=== PATIENT | male | born 1950 | race African-American/Black ===

== ENCOUNTER 2018-01-25 15:57 | Emergency (ER) | payer MEDICARE, BC ==
[~2018-01-25] VITALS: Ht 185.4 cm; Wt 124.0 kg
[~2018-01-25 15:57] MED LIST: ASPI-611 PO; ATOR20TA PO; BENZ-49 PO; CARV-49 PO; CLOP75TA15 PO; LEVO125T8 PO; LEVO500T89 PO; METO-292 PO
[2018-01-25] MEDS ORDERED: morphine 4 MG/ML inj SYRINge IV ONE ×2 (16:20→17:25)
[2018-01-25] MEDS ORDERED: ondansetron/PF 4mg/2ml inj IV ONE (16:20)
[2018-01-25] MEDS ORDERED: propofol 1000mg/100ml bottle 100 ML IV PRN (16:32)
[2018-01-25] MEDS ORDERED: normal saline 1000ML IV soln IVB ONE (16:35)
[2018-01-25] MEDS ORDERED: HYDR-3965 PO (17:40)
[2018-01-25 18:10] VITALS: BP 140/114
== END 2018-01-25 18:25 | disposition home or self-care (01) ==
LOC: ER 15:58
DX: S82.61XA Displaced fracture of lateral malleolus of right fibula, initial encounter for closed fracture (principal); E11.9 Type 2 diabetes mellitus without complications; Z88.5 Allergy status to narcotic agent; Z79.82 Long term (current) use of aspirin; Z79.899 Other long term (current) drug therapy; W18.49XA Other slipping, tripping and stumbling without falling, initial encounter; Y93.89 Activity, other specified; Y92.89 Other specified places as the place of occurrence of the external cause; Y99.8 Other external cause status
CPT/HCPCS: 27788; 73600; 73610; 96374; 96375; 96376; 99152; 99285; J2270; J2405; J2704

== ENCOUNTER 2018-02-11 13:58 | Inpatient (IN) | payer BC ==
[2018-02-06 11:39] LABS: BASOPHILS % (AUTO) 0.3 % (0-1); EOSINOPHILS # (AUTO) 0.3 X10'3 (0-0.9); EOSINOPHILS % (AUTO) 2.6 % (0-6); LYMPHOCYTES # (AUTO) 0.8 X10'3 (1.1-4.8); LYMPHOCYTES % (AUTO) 7.9 % (21-51); MEAN CORPUSCULAR HEMOGLOBIN 30.9 PG (27.0-31.0); MEAN CORPUSCULAR HGB CONC 33.5 % (33.0-36.5); MEAN PLATELET VOLUME 7.4 FL (7.4-10.4); MONOCYTES # (AUTO) 0.3 X10'3 (0-0.9); MONOCYTES % (AUTO) 3.3 % (2-12); NEUTROPHILS # (AUTO) 8.5 X10'3 (1.8-7.7); NEUTROPHILS % (AUTO) 85.9 % (42-75); PRE OP HEMATOCRIT 32.3 % (42.0-52.0); PRE OP PLATELET COUNT 262 X10'3 (140-440); RED BLOOD COUNT 3.51 X10'6 (4.70-6.10); RED CELL DISTRIBUTION WIDTH 14.6 % (11.5-14.5)
[2018-02-06 11:42] LABS: PRE OP HEMOGLOBIN 10.8 g/dL (14.0-17.9)
[2018-02-06 12:01] LABS: ALBUMIN 3.1 G/DL (3.4-5.0); ALBUMIN/GLOBULIN RATIO 0.6 (1.1-1.5); ALKALINE PHOSPHATASE 116 IU/L (46-116); BLOOD UREA NITROGEN 58 MG/DL (7-18); BUN/CREATININE RATIO 20.8 (5.4-32.0); CALCIUM 9.6 MG/DL (8.5-10.1); CHLORIDE 103 MMOL/L (99-107); CREATININE 2.79 MG/DL (0.60-1.10); PRE OP ALT 32 U/L (30-65); PRE OP ANION GAP 10 (8-16); PRE OP AST 26 U/L (10-37); PRE OP BILIRUB, TOTAL 0.3 MG/DL (0.0-1.0); PRE OP GLUCOSE 169 MG/DL (70-104); PRE OP POTASSIUM 4.6 MMOL/L (3.4-5.1); PRE OP SODIUM 138 MMOL/L (135-145); TOTAL PROTEIN 7.9 G/DL (6.4-8.2); eGFR 23 ML/MIN
[2018-02-06 12:05] LABS: PRE OP PROTIME 10.2 SECONDS (9.0-12.0)
[~2018-02-11] VITALS: Ht 185.4 cm; Wt 120.5 kg
[2018-02-11] VITALS (22 sets, daily range): BP systolic 104–177; BP diastolic 52–80
[~2018-02-11 13:58] MED LIST changes: -BENZ-49 PO; -CARV-49 PO; -CLOP75TA15 PO; +ERGO500041 PO; +LEVO100T PO; -LEVO125T8 PO; -LEVO500T89 PO; -METO-292 PO; +PIOG30TA10 PO; +TIMO5DRO33 RIGHTEYE; +ceFAZolin inj. 3,000 MG in normal saline 100ml IV soln 100 ML IV ONE; +famotidine 20mg tablet PO ONE; +meperidine/PF 25mg/ml syringe IV PRN; +morphine 4 MG/ML inj SYRINge IV PRN; +ondansetron/PF 4mg/2ml inj IV PRN; +proCHLORperazine 10 MG/2 ml inj IV PRN; +ringers solution, lacted 1,000 ML IV SCH; +vancomycin inj 1,500 MG in normal saline 300ml IV soln IV ONE
[2018-02-11] MEDS ORDERED: fentaNYL/PF 50MCG/1 ML 2ML syringe ONE ×2 (16:02→16:40)
[2018-02-11] MEDS ORDERED: midazolam 2 mg/2 ml injection ONE ×2 (16:03)
[2018-02-11] MEDS ORDERED: sevoflurane 250ml liquid IH ONE (16:04)
[2018-02-11] MEDS ORDERED: ondansetron/PF 4mg/2ml inj ONE (16:04)
[2018-02-11] MEDS ORDERED: cloNIDine hcl/PF 100mcg/ml inj ONE (16:04)
[2018-02-11] MEDS ORDERED: morphine 10mg/ml inj. ONE (17:30)
[2018-02-11] MEDS ORDERED: dexamethasone sod phosphate 4mg/ml inj. ONE (17:31)
[2018-02-11] MEDS ORDERED: propofol inj 20 ML IV ONE (17:31)
[2018-02-11] MEDS ORDERED: ROPIVAcaine 0.5% (5mg/ml) 30ml vial ONE (17:31)
[2018-02-11] MEDS ORDERED: ePHEDrine 50MG/ML INJ. ONE (17:31)
[2018-02-11] MEDS ORDERED: ondansetron/PF 4mg/2ml inj IV PRN (18:45)
[2018-02-11] MEDS ORDERED: HYDROmorphone inj. 0.5 MG/0.5 ML DISP.SYRIN IV PRN ×2 (18:45)
[2018-02-11] MEDS ORDERED: ringers solution, lacted 1,000 ML IV SCH (18:45)
[2018-02-11] MEDS ORDERED: morphine 4 MG/ML inj SYRINge IV PRN (18:45)
[2018-02-11] MEDS: timolol 0.5% ophthalmic solution 5ml bottle RIGHTEYE SCH (22:54)
[2018-02-11] MEDS: normal saline 1000ml 1,000 ML IV SCH (22:55)
[2018-02-12] VITALS (7 sets, daily range): BP systolic 120–149; BP diastolic 42–61
[2018-02-12] MEDS: ceFAZolin 1GM/D5W- ADD-VANTAGE 50 ML IV SCH ×3 (00:26→15:36)
[2018-02-12] MEDS: HYDROcodone/acetaminophen 10/325mg tab PO PRN ×5 (04:11→19:22)
[2018-02-12] MEDS: normal saline 1000ml 1,000 ML IV SCH ×3 (06:30→22:22)
[2018-02-12] MEDS: levoTHYROXINE 100mcg tablet PO SCH (07:33)
[2018-02-12] MEDS: aspirin 81mg tablet.DR PO SCH (07:34)
[2018-02-12] MEDS: atorvastatin 20mg tablet PO SCH (07:34)
[2018-02-12] MEDS: pioglitazone 15mg tablet PO SCH (07:34)
[2018-02-12] MEDS: timolol 0.5% ophthalmic solution 5ml bottle RIGHTEYE SCH ×2 (08:00→19:21)
[2018-02-13] MEDS: HYDROcodone/acetaminophen 10/325mg tab PO PRN ×4 (01:38→19:35)
[2018-02-13 02:00] VITALS: BP 138/59
[2018-02-13 05:00] VITALS: BP 112/57
[2018-02-13] MEDS: aspirin 81mg tablet.DR PO SCH (07:45)
[2018-02-13] MEDS: pioglitazone 15mg tablet PO SCH (07:45)
[2018-02-13] MEDS: atorvastatin 20mg tablet PO SCH (07:46)
[2018-02-13] MEDS: levoTHYROXINE 100mcg tablet PO SCH (07:46)
[2018-02-13] MEDS: timolol 0.5% ophthalmic solution 5ml bottle RIGHTEYE SCH ×2 (07:46→19:33)
[2018-02-13] MEDS: normal saline 1000ml 1,000 ML IV SCH (08:23)
[2018-02-13 10:00] VITALS: BP 102/48
[2018-02-13 18:00] VITALS: BP 118/45
[2018-02-13 22:00] VITALS: BP 128/51
[2018-02-14 06:00] VITALS: BP 148/63
[2018-02-14] MEDS: timolol 0.5% ophthalmic solution 5ml bottle RIGHTEYE SCH (07:19)
[2018-02-14] MEDS: levoTHYROXINE 100mcg tablet PO SCH (07:19)
[2018-02-14] MEDS: aspirin 81mg tablet.DR PO SCH (07:20)
[2018-02-14] MEDS: atorvastatin 20mg tablet PO SCH (07:20)
[2018-02-14] MEDS: pioglitazone 15mg tablet PO SCH (07:20)
[2018-02-14] MEDS: HYDROcodone/acetaminophen 10/325mg tab PO PRN ×2 (07:21→17:34)
[2018-02-14 10:00] VITALS: BP 159/61
[2018-02-14] MEDS ORDERED: WALKERFR (16:50)
== END 2018-02-14 17:45 | disposition home health service (06) | DRG 494 ==
LOC: PAS 13:58 → ORTHO 4S 20:20 → OBSVTOIN 02-12 08:00
PROVIDERS: ADMIT Orthopaedic Surgery; ATTEND Orthopaedic Surgery
PROC: 3E0T3BZ Introduction of Anesthetic Agent into Peripheral Nerves and Plexi, Percutaneous Approach (ICD-10-PCS; 2018-02-11)
PROC: 0QSJ04Z Reposition Right Fibula with Internal Fixation Device, Open Approach (ICD-10-PCS; principal; 2018-02-11 16:04)
PROC: 5A09357 Assistance with Respiratory Ventilation, Less than 24 Consecutive Hours, Continuous Positive Airway Pressure (ICD-10-PCS; 2018-02-12)
PROC: 5A09357 Assistance with Respiratory Ventilation, Less than 24 Consecutive Hours, Continuous Positive Airway Pressure (ICD-10-PCS; 2018-02-13)
DX: S82.61XA Displaced fracture of lateral malleolus of right fibula, initial encounter for closed fracture (principal); N18.9 Chronic kidney disease, unspecified; E11.22 Type 2 diabetes mellitus with diabetic chronic kidney disease; E03.9 Hypothyroidism, unspecified; M19.90 Unspecified osteoarthritis, unspecified site; G47.30 Sleep apnea, unspecified; E66.9 Obesity, unspecified; E78.5 Hyperlipidemia, unspecified; X58.XXXA Exposure to other specified factors, initial encounter; I12.9 Hypertensive chronic kidney disease with stage 1 through stage 4 chronic kidney disease, or unspecified chronic kidney disease; I25.10 Atherosclerotic heart disease of native coronary artery without angina pectoris; Z88.6 Allergy status to analgesic agent; I25.2 Old myocardial infarction; Z95.5 Presence of coronary angioplasty implant and graft; Z79.890 Hormone replacement therapy; Z79.899 Other long term (current) drug therapy; Z79.82 Long term (current) use of aspirin; Z92.3 Personal history of irradiation; Z92.21 Personal history of antineoplastic chemotherapy; Z85.818 Personal history of malignant neoplasm of other sites of lip, oral cavity, and pharynx; Z68.35 Body mass index [BMI] 35.0-35.9, adult; Y93.89 Activity, other specified; Y92.89 Other specified places as the place of occurrence of the external cause; Y99.8 Other external cause status
CPT/HCPCS: 36415; 71045; 80053; 82948; 84443; 85025; 85610; 85730; 93005; 97110; 97116; 97162; 97530; 97542; A6222; A6449; A7000; G0378; J0690; J0735; J1100; J2250; J2270; J2405; J2704; J2795; J3010; J3370; J7030; J7120

== ENCOUNTER 2018-05-03 11:35 | Emergency (ER) | payer MEDICARE ==
[~2018-05-03] VITALS: Ht 185.4 cm; Wt 120.4 kg
[~2018-05-03 11:35] MED LIST changes: +WALKERFR; -ceFAZolin inj. 3,000 MG in normal saline 100ml IV soln 100 ML IV ONE; -famotidine 20mg tablet PO ONE; -meperidine/PF 25mg/ml syringe IV PRN; -morphine 4 MG/ML inj SYRINge IV PRN; -ondansetron/PF 4mg/2ml inj IV PRN; -proCHLORperazine 10 MG/2 ml inj IV PRN; -ringers solution, lacted 1,000 ML IV SCH; -vancomycin inj 1,500 MG in normal saline 300ml IV soln IV ONE
[2018-05-03 12:00] VITALS: BP 154/65
[2018-05-03] MEDS ORDERED: HYDROcodone/acetaminophen 5mg/325mg tablet PO ONE (13:25)
[2018-05-03] MEDS ORDERED: HYDR-4384 PO (13:25)
[2018-05-03] MEDS ORDERED: WHEE1EAC12 MC (14:08)
--- NOTE | 2018-05-03 15:18 | NUR ---
Case Management provided Pt WC, Pt discharged.
== END 2018-05-03 15:20 | disposition home or self-care (01) ==
LOC: ER 11:36
DX: S82.831A Other fracture of upper and lower end of right fibula, initial encounter for closed fracture (principal); E11.9 Type 2 diabetes mellitus without complications; Z98.890 Other specified postprocedural states; Z88.5 Allergy status to narcotic agent; Z79.82 Long term (current) use of aspirin; Z79.899 Other long term (current) drug therapy; X58.XXXA Exposure to other specified factors, initial encounter; Y93.89 Activity, other specified; Y92.89 Other specified places as the place of occurrence of the external cause; Y99.8 Other external cause status
CPT/HCPCS: 29515; 73610; 99284

== ENCOUNTER 2018-05-13 11:20 | Observation (INO) | payer MEDICARE ==
[2018-05-11 11:59] LABS: BASOPHILS % (AUTO) 0.2 % (0-1); EOSINOPHILS # (AUTO) 0.2 X10'3 (0-0.9); EOSINOPHILS % (AUTO) 3.4 % (0-6); LYMPHOCYTES # (AUTO) 0.8 X10'3 (1.1-4.8); LYMPHOCYTES % (AUTO) 12.3 % (21-51); MEAN CORPUSCULAR HEMOGLOBIN 30.6 PG (27.0-31.0); MEAN CORPUSCULAR HGB CONC 33.8 g/dL (33.0-36.5); MEAN CORPUSCULAR VOLUME 90.5 FL (78-98); MEAN PLATELET VOLUME 8.5 FL (7.4-10.4); MONOCYTES # (AUTO) 0.3 X10'3 (0-0.9); MONOCYTES % (AUTO) 5.5 % (2-12); NEUTROPHILS % (AUTO) 78.6 % (42-75); PRE OP HEMOGLOBIN 11.5 g/dL (14.0-17.9); PRE OP PLATELET COUNT 182 X10'3 (140-440); RED BLOOD COUNT 3.75 X10'6 (4.70-6.10); RED CELL DISTRIBUTION WIDTH 15.4 % (11.5-14.5)
[2018-05-11 12:18] LABS: PRE OP PROTIME 10.3 SECONDS (9.0-12.0)
[2018-05-11 12:19] LABS: HEMOGLOBIN A1C 6.4 % (4.5-6.2)
[2018-05-11 12:27] LABS: ALBUMIN 3.3 G/DL (3.4-5.0); ALBUMIN/GLOBULIN RATIO 0.7 (1.1-1.5); ALKALINE PHOSPHATASE 131 IU/L (46-116); BLOOD UREA NITROGEN 38 MG/DL (7-18); BUN/CREATININE RATIO 15.1 (5.4-32.0); CALCIUM 9.6 MG/DL (8.5-10.1); CHLORIDE 105 MMOL/L (99-107); CREATININE 2.52 MG/DL (0.60-1.10); PRE OP ALT 21 U/L (30-65); PRE OP ANION GAP 12 (8-16); PRE OP AST 18 U/L (10-37); PRE OP BILIRUB, TOTAL 0.3 MG/DL (0.0-1.0); PRE OP GLUCOSE 138 MG/DL (70-104); PRE OP POTASSIUM 4.8 MMOL/L (3.4-5.1); PRE OP SODIUM 140 MMOL/L (135-145); TOTAL CARBON DIOXIDE 22.7 MMOL/L (24-32); eGFR 26 ML/MIN
[2018-05-13] VITALS (16 sets, daily range): BP systolic 97–229; BP diastolic 47–138
[~2018-05-13] VITALS: Ht 185.4 cm; Wt 120.8 kg
[~2018-05-13 11:20] MED LIST changes: +BUPIVAcaine/PF 2.5mg/ml (0.25%) 10ml vial ONE; +IBUP-1984 PO; -WALKERFR; +acetaminophen 325mg tablet PO ONE; +bacitracin 15gm ointment TP ONE; +ceFAZolin 1000mg inj ONE; +ceFAZolin inj. 3,000 MG in normal saline 100ml IV soln 100 ML IV ONE; +famotidine 20mg tablet PO ONE; +gabapentin 300mg capsule PO ONE; +normal saline 1000ml 1,000 ML IV SCH; +oxyCODONE SR 10mg (sust. release) tab -2 tabs (20mg) PO ONE; +ringers solution, lacted 1,000 ML IV SCH; +vancomycin inj 1,500 MG in normal saline 300ml IV soln IV ONE
[2018-05-13] MEDS ORDERED: ROPIVAcaine 0.5% (5mg/ml) 30ml vial ONE (12:02)
[2018-05-13] MEDS ORDERED: midazolam 2 mg/2 ml injection ONE (12:28)
[2018-05-13] MEDS ORDERED: fentaNYL/PF 50MCG/1 ML 2ML syringe ONE (12:28)
[2018-05-13] MEDS ORDERED: etomidate 2mg/ml inj. ONE (12:29)
--- NOTE | 2018-05-13 12:46 | NUR ---
PT HAS A BRACE WITH HAWK WRAP RLE. NOT REMOVED PER OR INSTRUCTION Addendum: 05/13/18 at 1254 by Debi Velasquez RN Amended: Links added.
[2018-05-13] MEDS ORDERED: sevoflurane 250ml liquid IH ONE (13:21)
[2018-05-13] MEDS ORDERED: hydrALAZINE 20mg/ml inj. IV PRN (14:25)
[2018-05-13] MEDS ORDERED: ringers solution, lacted 1,000 ML IV SCH (14:25)
[2018-05-13] MEDS ORDERED: enalaprilat dihydrate 2.5mg/2ml vial IV PRN (14:25)
[2018-05-13] MEDS ORDERED: morphine 4 MG/ML inj SYRINge IV PRN ×2 (14:25)
[2018-05-13] MEDS ORDERED: ondansetron/PF 4mg/2ml inj IV PRN ×2 (14:25→15:30)
[2018-05-13] MEDS ORDERED: fentaNYL/PF 50MCG/1 ML 2ML syringe IV PRN (14:25)
[2018-05-13] MEDS ORDERED: oxyCODONE IR 5mg (immed. release) tablet PO PRN (15:30)
[2018-05-13] MEDS ORDERED: HYDROmorphone inj. 0.5 MG/0.5 ML DISP.SYRIN IV PRN (15:30)
[2018-05-13] MEDS ORDERED: diphenhydrAMINE 25mg capsule PO PRN ×2 (15:30)
[2018-05-13] MEDS ORDERED: acetaminophen 325mg tablet PO PRN (15:30)
[2018-05-13] MEDS ORDERED: magnesium hydroxide 30ml (MOM) UD suspension PO PRN (15:30)
[2018-05-13] MEDS ORDERED: HYDROmorphone 1 mg/ml syringe IV PRN (15:30)
[2018-05-13] MEDS ORDERED: bisacodyl 10mg suppository rectal RC PRN (15:30)
--- NOTE | 2018-05-13 15:55 | NUR ---
Received from OR via BED , accompanied by Anesthesiologist DR BAKER and report given by Anesthesiolgist. PATIENT WAKING UP, DENIES PAIN, V/S WNL, NEUROVASCULAR CHECKS INTACT, 20G PIV LUE , DRESSING TO RIGHT ANKLE SPLINT CAST CDI W/ COLD POWDER PACK
[2018-05-13] MEDS: ceFAZolin 1GM/D5W- ADD-VANTAGE 50 ML IV SCH (16:00)
[2018-05-13] MEDS ORDERED: IBUP-1984 PO (16:11)
[2018-05-13] MEDS: fentaNYL/PF 50MCG/1 ML 2ML syringe IV PRN ×2 (16:46→16:50)
--- NOTE | 2018-05-13 16:55 | NUR ---
PATIENT A&OX4 , STATES PAIN CONTROLELD, V/S WNL, NEUROVASCULAR CHECKS INTACT, 20G PIV LUE , DRESSING TO RIGHT ANKLE SPLINT CAST CDI W/ COLD POWDER PACK , PATIENT TAKEN TO 4022B WITH ALL BELONGINGS AND HOOKED UP TO MONITORS IN ROOM AND REPORT GIVEN TO MANDI VARGHESE WHO HAS TAKEN OVER PATIENT CARE.
--- NOTE | 2018-05-13 17:00 | NUR ---
ASSUMED CARE, RECEIVED REPORT FROM JEFFERSON VARGHESE, PATIENT ARRIVED ON GURNEY, ASSIST WITH TRANSFER TO BED. PT NAUSEOUS UPON ARRIVAL, RECEIVED ZOFRAN IN THE PACU, WILL CONTINUE TO MONITOR.
--- NOTE | 2018-05-13 18:20 | NUR ---
Problems reprioritized. Patient report given, questions answered & plan of care reviewed with TATO VARGHESE.
--- NOTE | 2018-05-13 18:33 | NUR ---
RECEIVED REPORT FROM JOSSIE VARGHESE AND ASSUMED PATIENT CARE
[2018-05-13] MEDS: potassium cl 20mEq in 1/2 NS 1,000 ML IV SCH (19:20)
[2018-05-13] MEDS: metoclopramide 5 mg/ml inj IV PRN (19:20)
[2018-05-13] MEDS: timolol 0.5% ophthalmic solution 5ml bottle RIGHTEYE SCH (20:00)
[2018-05-13] MEDS ORDERED: vancomycin/NS 1 GM ADD-VANTAGE 250 ML IV SCH (20:00)
[2018-05-13] MEDS ORDERED: sennosides 8.6mg tablet PO SCH (21:00)
[2018-05-13] MEDS: acetaminophen 325mg tablet PO SCH (21:00)
[2018-05-13] MEDS: ibuprofen tablet 400 MG TABLET PO SCH (21:01)
[2018-05-13] MEDS: gabapentin 300mg capsule PO SCH (21:01)
[2018-05-14] MEDS: acetaminophen 325mg tablet PO SCH ×3 (01:23→13:48)
[2018-05-14] MEDS: ceFAZolin 1GM/D5W- ADD-VANTAGE 50 ML IV SCH (01:23)
[2018-05-14 02:00] VITALS: BP 135/59
[2018-05-14] MEDS: potassium cl 20mEq in 1/2 NS 1,000 ML IV SCH ×2 (05:41→05:52)
[2018-05-14] MEDS: oxyCODONE IR 5mg (immed. release) tablet PO PRN ×2 (05:42→13:48)
[2018-05-14 05:50] LABS: BASOPHILS % (AUTO) 0.5 % (0-1); EOSINOPHILS # (AUTO) 0.2 X10'3 (0-0.9); EOSINOPHILS % (AUTO) 2.7 % (0-6); HEMOGLOBIN 10.2 g/dl (14.0-17.9); LYMPHOCYTES # (AUTO) 0.9 X10'3 (1.1-4.8); LYMPHOCYTES % (AUTO) 13.5 % (21-51); MEAN CORPUSCULAR HEMOGLOBIN 30.7 PG (27.0-31.0); MEAN CORPUSCULAR HGB CONC 34.1 g/dL (33.0-36.5); MEAN CORPUSCULAR VOLUME 90.2 FL (78-98); MEAN PLATELET VOLUME 7.7 FL (7.4-10.4); MONOCYTES # (AUTO) 0.4 X10'3 (0-0.9); MONOCYTES % (AUTO) 5.2 % (2-12); NEUTROPHILS # (AUTO) 5.5 X10'3 (1.8-7.7); NEUTROPHILS % (AUTO) 78.1 % (42-75); PLATELET COUNT 161 X10'3 (140-440); RED BLOOD COUNT 3.32 X10'6 (4.70-6.10); RED CELL DISTRIBUTION WIDTH 15.2 % (11.5-14.5)
--- NOTE | 2018-05-14 05:57 | NUR ---
REPORT GIVEN TO JOSSIE VARGHESE
[2018-05-14 06:00] VITALS: BP 121/54
[2018-05-14 06:04] LABS: ANION GAP 10 (8-16); CHLORIDE 107 MMOL/L (99-107); POTASSIUM 4.7 MMOL/L (3.5-5.1); SODIUM 139 MMOL/L (135-145); TOTAL CARBON DIOXIDE 21.7 MMOL/L (24-32)
[2018-05-14] MEDS ORDERED: albuterol 2.5 MG/3 ML nebule NEB PRN (06:25)
[2018-05-14] MEDS: metoclopramide 5 mg/ml inj IV PRN (07:16)
[2018-05-14] MEDS: ibuprofen tablet 400 MG TABLET PO SCH (08:00)
[2018-05-14] MEDS ORDERED: levoTHYROXINE 100mcg tablet PO SCH (08:00)
[2018-05-14] MEDS: gabapentin 300mg capsule PO SCH ×2 (08:00→13:51)
[2018-05-14] MEDS ORDERED: atorvastatin 20mg tablet PO SCH (08:00)
[2018-05-14] MEDS ORDERED: pioglitazone 15mg tablet PO SCH (08:00)
[2018-05-14] MEDS ORDERED: aspirin 81mg tab.chew PO SCH (08:00)
[2018-05-14] MEDS: timolol 0.5% ophthalmic solution 5ml bottle RIGHTEYE SCH (08:52)
[2018-05-14 10:00] VITALS: BP 138/88
--- NOTE | 2018-05-14 12:23 | NUR ---
Joint replacement consult: Pt seen by SARI for written/verbal high protein ed. RD reviewed high protein needs for wound healing, immune strength, high protein foods, and protein supplementation options. RD contact information provided in case of further questions. Pt agrees to Megan STEPHENS; notified will continue to monitor. Addendum: 05/14/18 at [address] Amended: Links added.
[2018-05-14] MEDS ORDERED: NUT.TX.GLUC.INTOLER,LAC-FR,SOY (GLUCERNA) 237 ML PO SCH (13:00)
[2018-05-14 14:00] VITALS: BP 151/63
--- NOTE | 2018-05-14 16:42 | NUR ---
PATIENT DC HOME SAFELY WITH GIRLFRIEND. ALL BELONGINGS IN POSSESSION. PATIENT ACKNOWLEDGES UNDERSTANDING OF DC INSTRUCTIONS.
[2018-05-15] MEDS ORDERED: acetaminophen 325mg tablet PO PRN (15:30)
== END 2018-05-14 16:30 | disposition home or self-care (01) ==
LOC: PAS 11:20 → ORTHO 4S 15:36
PROVIDERS: ADMIT Orthopaedic Surgery; ATTEND Orthopaedic Surgery
DX: M25.571 Pain in right ankle and joints of right foot (principal); S93.421D Sprain of deltoid ligament of right ankle, subsequent encounter; T84.84XS Pain due to internal orthopedic prosthetic devices, implants and grafts, sequela; S82.61XS Displaced fracture of lateral malleolus of right fibula, sequela; I10 Essential (primary) hypertension; I25.10 Atherosclerotic heart disease of native coronary artery without angina pectoris; E11.9 Type 2 diabetes mellitus without complications; G47.30 Sleep apnea, unspecified; E78.5 Hyperlipidemia, unspecified; E03.9 Hypothyroidism, unspecified
CPT/HCPCS: 20680; 27792; 36415; 80051; 80053; 82948; 83036; 84443; 85025; 85610; 85730; 94760; 96365; 96366; 96367; 96375; 96376; 97116; 97162; A6222; A6449; G0378; J0360; J0690; J2250; J2405; J2765; J3010; J3370; J3490; J7030; J7120; A7000; J2795

== ENCOUNTER 2019-04-30 12:56 | Emergency (ER) | payer MEDICARE ==
[~2019-04-30] VITALS: Ht 185.4 cm; Wt 123.0 kg
[~2019-04-30 12:56] MED LIST changes: -BUPIVAcaine/PF 2.5mg/ml (0.25%) 10ml vial ONE; -acetaminophen 325mg tablet PO ONE; -bacitracin 15gm ointment TP ONE; -ceFAZolin 1000mg inj ONE; -ceFAZolin inj. 3,000 MG in normal saline 100ml IV soln 100 ML IV ONE; -famotidine 20mg tablet PO ONE; -gabapentin 300mg capsule PO ONE; -normal saline 1000ml 1,000 ML IV SCH; -oxyCODONE SR 10mg (sust. release) tab -2 tabs (20mg) PO ONE; -ringers solution, lacted 1,000 ML IV SCH; -vancomycin inj 1,500 MG in normal saline 300ml IV soln IV ONE
[2019-04-30 13:01] VITALS: BP 122/71
[2019-04-30] MEDS ORDERED: DOXY100C2 PO (13:49)
[2019-04-30] MEDS ORDERED: ALBU8.5H8 IH (13:49)
== END 2019-04-30 14:07 | disposition home or self-care (01) ==
LOC: ER 12:57
DX: J18.9 Pneumonia, unspecified organism (principal); E11.9 Type 2 diabetes mellitus without complications; Z98.890 Other specified postprocedural states; Z88.5 Allergy status to narcotic agent; Z79.82 Long term (current) use of aspirin; Z79.899 Other long term (current) drug therapy
CPT/HCPCS: 71046; 99283

== ENCOUNTER 2020-09-12 13:01 | Outpatient (CLI) | payer MEDICARE ==
[~2020-09-12 13:01] MED LIST changes: +APIX5TAB3 PO; -ATOR20TA PO; +ATOR20TA66 PO; -ERGO500041 PO; -IBUP-1984 PO; -LEVO100T PO; +LEVO137T2 PO; +LISI20TA28 PO; +METO25TA6 PO; -PIOG30TA10 PO; -TIMO5DRO33 RIGHTEYE
== END 2020-09-12 23:59 | disposition home or self-care (01) ==
LOC: 64 CT 13:01
PROVIDERS: ATTEND Family Medicine
DX: R91.1 Solitary pulmonary nodule (principal); I70.0 Atherosclerosis of aorta; M19.90 Unspecified osteoarthritis, unspecified site; M48.10 Ankylosing hyperostosis [Forestier], site unspecified
CPT/HCPCS: 71250

== ENCOUNTER 2020-10-17 06:32 | Day surgery (SDC) | payer MEDICARE ==
[2020-10-17] VITALS (14 sets, daily range): BP systolic 117–234; BP diastolic 50–113
[~2020-10-17] VITALS: Ht 185.4 cm; Wt 111.4 kg
[2020-10-17 08:02] LABS: BASOPHILS % (AUTO) 0.3 % (0-1); EOSINOPHILS # (AUTO) 0.1 X10'3 (0-0.9); EOSINOPHILS % (AUTO) 1.8 % (0-6); HEMATOCRIT 37.4 % (42.0-52.0); HEMOGLOBIN 12.4 g/dl (14.0-17.9); LYMPHOCYTES # (AUTO) 1.1 X10'3 (1.1-4.8); MEAN CORPUSCULAR HEMOGLOBIN 30.6 PG (27.0-31.0); MEAN CORPUSCULAR VOLUME 92.7 FL (78-98); MEAN PLATELET VOLUME 8.5 FL (7.4-10.4); MONOCYTES # (AUTO) 0.4 X10'3 (0-0.9); NEUTROPHILS # (AUTO) 4.5 X10'3 (1.8-7.7); NEUTROPHILS % (AUTO) 72.9 % (42-75); PLATELET COUNT 171 X10'3 (140-440); RED BLOOD COUNT 4.04 X10'6 (4.70-6.10); RED CELL DISTRIBUTION WIDTH 14.9 % (11.5-14.5); WHITE BLOOD COUNT 6.1 X10'3 (4.5-11.0)
[2020-10-17] MEDS ORDERED: midazolam 1 mg/ML 2ml injection ONE (09:02)
[2020-10-17] MEDS ORDERED: fentaNYL/PF 50MCG/1 ML 2ML syringe ONE (09:02)
[2020-10-17] MEDS ORDERED: hydrALAZINE 20mg/ml inj. IV ONE (09:52)
== END 2020-10-17 13:30 | disposition home or self-care (01) ==
LOC: SSTAY O 06:32
PROVIDERS: ATTEND Radiology Vascular & Interventional Radiology
DX: R91.1 Solitary pulmonary nodule (principal); E03.9 Hypothyroidism, unspecified; E78.5 Hyperlipidemia, unspecified; I48.91 Unspecified atrial fibrillation; Z88.5 Allergy status to narcotic agent; Z79.899 Other long term (current) drug therapy; Z79.82 Long term (current) use of aspirin; Z79.01 Long term (current) use of anticoagulants; Z85.818 Personal history of malignant neoplasm of other sites of lip, oral cavity, and pharynx; R06.02 Shortness of breath
CPT/HCPCS: 32408; 36415; 71045; 82948; 83880; 85025; 99152; 99153; J0360; J2250; J3010; 77012; 88173; 88305; 88341; 88342; 88360

== ENCOUNTER 2020-11-29 12:29 | Outpatient (CLI) | payer MEDICARE ==
[2020-11-29] MEDS ORDERED: BARIUM SULFATE 340 ML SUSP.RECON***PROCEDURE AREA ONLY**DONT ENTER PO ONE (13:00)
== END 2020-11-29 23:59 | disposition home or self-care (01) ==
LOC: RAD 12:29
PROVIDERS: ATTEND Family Medicine
DX: R13.12 Dysphagia, oropharyngeal phase (principal); Z85.89 Personal history of malignant neoplasm of other organs and systems
CPT/HCPCS: 74230

== ENCOUNTER 2021-01-25 08:00 | Inpatient (IN) | payer MEDICARE ==
[2021-01-19 12:47] LABS: BASOPHILS % (AUTO) 0.2 % (0-1); EOSINOPHILS # (AUTO) 0.1 X10'3 (0-0.9); EOSINOPHILS % (AUTO) 1.4 % (0-6); LYMPHOCYTES # (AUTO) 0.9 X10'3 (1.1-4.8); LYMPHOCYTES % (AUTO) 18.5 % (21-51); MEAN CORPUSCULAR HEMOGLOBIN 30.9 PG (27.0-31.0); MEAN CORPUSCULAR HGB CONC 33.2 g/dL (33.0-36.5); MEAN CORPUSCULAR VOLUME 93.3 FL (78-98); MEAN PLATELET VOLUME 8.2 FL (7.4-10.4); MONOCYTES # (AUTO) 0.3 X10'3 (0-0.9); MONOCYTES % (AUTO) 6.7 % (2-12); NEUTROPHILS # (AUTO) 3.7 X10'3 (1.8-7.7); NEUTROPHILS % (AUTO) 73.2 % (42-75); PRE OP HEMATOCRIT 35.7 % (42.0-52.0); PRE OP HEMOGLOBIN 11.8 g/dL (14.0-17.9); PRE OP PLATELET COUNT 183 X10'3 (140-440); RED BLOOD COUNT 3.83 X10'6 (4.70-6.10); RED CELL DISTRIBUTION WIDTH 15.4 % (11.5-14.5)
[2021-01-19 12:53] LABS: PRE OP INR 1.1 INR; PRE OP PROTIME 10.9 SECONDS (9.0-12.0)
[2021-01-19 13:13] LABS: ALBUMIN 3.9 G/DL (3.4-5.0); ALKALINE PHOSPHATASE 142 IU/L (46-116); BLOOD UREA NITROGEN 38 MG/DL (7-18); CALCIUM 8.9 MG/DL (8.5-10.1); CHLORIDE 109 MMOL/L (99-107); CREATININE 3.17 MG/DL (0.60-1.10); PRE OP ALT 20 U/L (30-65); PRE OP ANION GAP 8 (8-16); PRE OP AST 16 U/L (10-37); PRE OP BILIRUB, TOTAL 0.4 MG/DL (0.0-1.0); PRE OP GLUCOSE 134 MG/DL (70-104); PRE OP POTASSIUM 4.5 MMOL/L (3.4-5.1); PRE OP SODIUM 140 MMOL/L (135-145); TOTAL CARBON DIOXIDE 22.6 MMOL/L (24-32); eGFR 20 ML/MIN
[2021-01-25] VITALS (8 sets, daily range): BP systolic 124–196; BP diastolic 55–84
[~2021-01-25] VITALS: Ht 185.4 cm; Wt 117.0 kg
[~2021-01-25 08:00] MED LIST changes: +DOCUMENT DATE & TIME OF BETA-BLOCKER PO ONE; -LISI20TA28 PO; +LISI40TA13 PO; +ceFAZolin 2gm in dextrose, iso 50 ML IV ONE; +famotidine 20mg tablet PO ONE; +ringers solution, lacted 1,000 ML IV SCH
[2021-01-25] MEDS ORDERED: metoprolol tartrate 25mg tablet PO ONE (09:30)
[2021-01-25] MEDS ORDERED: midazolam 1 mg/ML 2ml injection ONE (15:05)
[2021-01-25 15:51] LABS: CLARITY,URINE CLEAR (Clear); COLOR,URINE YELLOW (Yellow); GLUCOSE, URINE NEGATIVE (Neg); KETONES,URINE NEGATIVE (Neg); LEUKOCYTE ESTERASE ,URINE NEGATIVE (Neg); NITRITES, URINE NEGATIVE (Neg); OCCULT BLOOD,URINE NEGATIVE (Neg); PROTEIN,URINE 300 mg/dl (Neg); UA COLLECTION TYPE VOIDED; UROBILINOGEN,URINE 0.2 E.U/dL (0.2-1.0)
[2021-01-25 16:20] LABS: RBC,URINE NONE SEEN /HPF (0-2); WBC,URINE NONE SEEN /HPF (0-4)
[2021-01-25 16:21] LABS: BACTERIA,URINE NONE SEEN /HPF (Neg); SQUAMOUS EPITHELIAL CELL,UR FEW /LPF (FEW)
[2021-01-25] MEDS ORDERED: fentaNYL /PF 50mcg/ml 5ml ampule ONE (16:33)
[2021-01-25] MEDS ORDERED: rocuronium 10mg/ml inj IV ONE (16:33)
[2021-01-25] MEDS ORDERED: propofol inj 20 ML IV ONE (16:33)
[2021-01-25] MEDS ORDERED: morphine 2 MG/ML inj. syringe IV PRN (17:05)
[2021-01-25] MEDS ORDERED: acetaminophen 1,000mg/100ml IV 100 ML IV PRN (17:05)
[2021-01-25] MEDS ORDERED: ondansetron/PF 4mg/2ml inj IV PRN ×2 (17:05→19:00)
[2021-01-25] MEDS ORDERED: proCHLORperazine 10 MG/2 ml inj IV PRN (17:05)
[2021-01-25] MEDS ORDERED: labetalol 20mg/4ml (5mg/ml) syringe IV PRN (17:05)
[2021-01-25] MEDS ORDERED: hydrALAZINE 20mg/ml inj. IV PRN (17:05)
[2021-01-25] MEDS ORDERED: meperidine/PF 25mg/ml syringe IV PRN ×3 (17:05)
[2021-01-25] MEDS ORDERED: normal saline 1000ml 1,000 ML IV ONE (17:05)
[2021-01-25] MEDS ORDERED: INDOCYANINE GREEN 25 MG/10 ML VIAL IV ONE (17:32)
[2021-01-25] MEDS ORDERED: BUPIVACAINE liposomal/PF 13.3 MG/ML vial IM ONE (18:07)
[2021-01-25] MEDS ORDERED: BUPIVAcaine/PF 2.5 mg/ml (0.25%) 30ml vial ONE (18:07)
[2021-01-25] MEDS ORDERED: dexamethasone sod phosphate 4mg/ml inj. ONE (18:45)
[2021-01-25] MEDS ORDERED: ondansetron/PF 4mg/2ml inj ONE (18:46)
[2021-01-25] MEDS ORDERED: sugammadex 200mg/2ml injection IV ONE ×2 (18:47→19:04)
[2021-01-25] MEDS ORDERED: naloxone 0.4 mg/ml inj IV PRN (19:00)
[2021-01-25] MEDS ORDERED: potassium cl 20mEq in 1/2 NS 1,000 ML IV SCH (19:00)
[2021-01-25] MEDS ORDERED: metoclopramide 5 mg/ml inj IV PRN (19:00)
[2021-01-25] MEDS ORDERED: albuterol 2.5 MG/3 ML nebule NEB PRN (19:00)
[2021-01-25] MEDS ORDERED: CADD PCA waste documentation MC PRN (19:00)
[2021-01-25] MEDS ORDERED: morphine 4 MG/ML inj SYRINge IV PRN (19:00)
--- NOTE | 2021-01-25 19:08 | NUR ---
Received from OR via , accompanied by Anesthesiologist DR JASMINE and report given by Anesthesiolgist. AWAKENS TO VOICE. VITALS STABLE. DRESSING DI. STATES PAIN TO CT AREA. WILL MEDICATE. SANDERSON WITH CLEAR URINE. RT LAT CHEST TUBE TO LOW SUCTION.
[2021-01-25] MEDS: morphine 4 MG/ML inj SYRINge IV PRN ×3 (19:17→22:07)
[2021-01-25 19:20] LABS: ABG BASE EXCESS -8.8 mmol/L (-2.0-2.0); ABG HCO3 17.6 mmol/L (22.0-26.0); ABG OXYGEN SATURATION 96.9 % (94-97); ABG PCO2 (T) 39.8 mmHg (35.0-48.0); ABG PO2 (T) 97.9 mmHg (75.0-100.0); FCOHb 0.3 % (0.0-3.9); FLOW 10 L/min; FMetHb 0.4 % (0.0-1.5); FO2Hb 96.2 % (94-97); TOTAL HEMOGLOBIN 10.8 G/dl (14.0-18.0)
--- NOTE | 2021-01-25 20:18 | NUR ---
Report called to receiving nurse. Transferred via BED Belongings . Special Issues communicated to receiving nurse. AWAKE AND ORIENTED. VITALS STABLE. DRESSING DI. STATES PAIN IMPROVING. TO [facility] RM [id number] AT THIS TIME.
[2021-01-26] VITALS (16 sets, daily range): BP systolic 76–175; BP diastolic 39–70
[2021-01-26] MEDS: gabapentin 300mg capsule PO SCH ×3 (01:22→20:00)
[2021-01-26] MEDS: ceFAZolin inj. 1,000 MG in dextrose 5%-water 50ml 50 ML IV SCH ×2 (01:25→08:24)
[2021-01-26] MEDS: morphine 4 MG/ML inj SYRINge IV PRN ×2 (02:45→08:27)
[2021-01-26 06:33] LABS: BASOPHILS % (AUTO) 0.1 % (0-1); EOSINOPHILS % (AUTO) 0 % (0-6); HEMATOCRIT 32.3 % (42.0-52.0); HEMOGLOBIN 10.9 g/dl (14.0-17.9); LYMPHOCYTES # (AUTO) 0.2 X10'3 (1.1-4.8); LYMPHOCYTES % (AUTO) 1.9 % (21-51); MEAN CORPUSCULAR HEMOGLOBIN 31.2 PG (27.0-31.0); MEAN CORPUSCULAR HGB CONC 33.8 g/dL (33.0-36.5); MEAN CORPUSCULAR VOLUME 92.4 FL (78-98); MEAN PLATELET VOLUME 8.5 FL (7.4-10.4); MONOCYTES # (AUTO) 0.6 X10'3 (0-0.9); MONOCYTES % (AUTO) 5.5 % (2-12); NEUTROPHILS # (AUTO) 9.6 X10'3 (1.8-7.7); NEUTROPHILS % (AUTO) 92.5 % (42-75); PLATELET COUNT 160 X10'3 (140-440); RED BLOOD COUNT 3.49 X10'6 (4.70-6.10); WHITE BLOOD COUNT 10.4 X10'3 (4.5-11.0)
[2021-01-26 06:58] LABS: ALANINE AMINOTRANSFERASE 26 U/L (12-78); ALBUMIN 3.4 G/DL (3.4-5.0); ALBUMIN/GLOBULIN RATIO 0.9 (1.1-1.5); ALKALINE PHOSPHATASE 126 IU/L (46-116); ANION GAP 13 (8-16); ASPARTATE AMINO TRANSFERASE 26 U/L (10-37); BILIRUBIN,TOTAL 0.4 MG/DL (0.1-1.0); BLOOD UREA NITROGEN 43 MG/DL (7-18); BUN/CREATININE RATIO 12.5 (5.4-32.0); CALCIUM 8.2 MG/DL (8.5-10.1); CHLORIDE 109 MMOL/L (99-107); CREATININE 3.44 MG/DL (0.60-1.10); GLUCOSE 229 MG/DL (70-104); MAGNESIUM 1.6 MG/DL (1.5-2.4); PHOSPHORUS 4.3 MG/DL (2.3-4.5); SODIUM 141 MMOL/L (135-145); TOTAL CARBON DIOXIDE 18.9 MMOL/L (24-32); TOTAL PROTEIN 7.2 G/DL (6.4-8.2); eGFR 18 ML/MIN
[2021-01-26 07:16] LABS: POTASSIUM 6.3 MMOL/L (3.5-5.1)
[2021-01-26 07:19] LABS: HEMOGLOBIN A1C 6.3 % (4.5-6.2)
--- NOTE | 2021-01-26 08:13 | NUR ---
Left message with Dr. Mcnally regarding potassium 6.3
--- NOTE | 2021-01-26 08:58 | NUR ---
left voicemessage with Dr. Mcnally ([phone]) regarding oxygen demand increasing to 6L from 2L and Potassium 6.3. Respiratory therapy paged.
[2021-01-26 09:34] LABS: ABG BASE EXCESS -11.1 mmol/L (-2.0-2.0); ABG HCO3 17.2 mmol/L (22.0-26.0); ABG OXYGEN SATURATION 96.4 % (94-97); ABG PO2 (T) 90.5 mmHg (75.0-100.0); FCOHb 0.3 % (0.0-3.9); FLOW 5 L/min; FMetHb 0.4 % (0.0-1.5); FO2Hb 95.7 % (94-97); TOTAL HEMOGLOBIN 11.6 G/dl (14.0-18.0)
[2021-01-26] MEDS ORDERED: albuterol 2.5 MG/3 ML nebule CONTNEB PRN (10:00)
[2021-01-26] MEDS ORDERED: insulin regular, human 10 units/0.1 ml syringe IV ONE (10:05)
[2021-01-26] MEDS ORDERED: dextrose 50%-water 50ml dispensing syringe IV ONE (10:15)
[2021-01-26] MEDS ORDERED: dextrose 50%-water 50ml dispensing syringe IV PRN (11:55)
[2021-01-26] MEDS ORDERED: glucagon, human recombinant 1mg kit SUBCUT PRN (11:55)
[2021-01-26] MEDS ORDERED: dextrose ORAL solution 15 GM/59 ML bottle PO PRN ×2 (11:55)
[2021-01-26] MEDS: SODIUM ZIRCONIUM CYCLOSILICATE 10 GM POWD.PACK PO SCH ×3 (12:57→23:43)
[2021-01-26] MEDS: insulin Lispro (HumaLOG) vial - multi-dose SQ SCH (13:01)
[2021-01-26 13:27] LABS: ABG BASE EXCESS -11.9 mmol/L (-2.0-2.0); ABG HCO3 16.6 mmol/L (22.0-26.0); ABG OXYGEN SATURATION 91.9 % (94-97); ABG PO2 (T) 65.9 mmHg (75.0-100.0); ALLEN'S TEST POSITIVE; FCOHb 0.3 % (0.0-3.9); FLOW 4 L/min; FMetHb 0.4 % (0.0-1.5); FO2Hb 91.3 % (94-97); TOTAL HEMOGLOBIN 11.7 G/dl (14.0-18.0)
--- NOTE | 2021-01-26 13:52 | NUR ---
message left for Dr. Mcnally for ABG results. Marisol [phone]
[2021-01-26] MEDS ORDERED: albuterol 2.5 MG/3 ML nebule NEB PRN (16:35)
[2021-01-26 17:36] LABS: ABG BASE EXCESS -9.6 mmol/L (-2.0-2.0); ABG OXYGEN SATURATION 95.3 % (94-97); ABG PCO2 (T) 39.9 mmHg (35.0-48.0); ABG PO2 (T) 72.6 mmHg (75.0-100.0); FCOHb 0.3 % (0.0-3.9); FMetHb 0.4 % (0.0-1.5); FO2Hb 94.6 % (94-97); RESPIRATORY RATE 16 b/min; TOTAL HEMOGLOBIN 10.8 G/dl (14.0-18.0)
[2021-01-26] MEDS ORDERED: albumin (human) 25% 100 ML IV solution IV ONE (17:50)
[2021-01-26 18:01] LABS: ALANINE AMINOTRANSFERASE 19 U/L (12-78); ALBUMIN/GLOBULIN RATIO 0.9 (1.1-1.5); ALKALINE PHOSPHATASE 104 IU/L (46-116); ANION GAP 13 (8-16); ASPARTATE AMINO TRANSFERASE 21 U/L (10-37); BILIRUBIN,TOTAL 0.3 MG/DL (0.1-1.0); BLOOD UREA NITROGEN 53 MG/DL (7-18); BUN/CREATININE RATIO 12.5 (5.4-32.0); CALCIUM 7.6 MG/DL (8.5-10.1); CHLORIDE 110 MMOL/L (99-107); CREATININE 4.25 MG/DL (0.60-1.10); GLUCOSE 197 MG/DL (70-104); POTASSIUM 5.2 MMOL/L (3.5-5.1); SODIUM 143 MMOL/L (135-145); TOTAL CARBON DIOXIDE 20.1 MMOL/L (24-32); TOTAL PROTEIN 6.5 G/DL (6.4-8.2); eGFR 14 ML/MIN
--- NOTE | 2021-01-26 18:50 | NUR ---
Problems reprioritized. Patient report given, questions answered & plan of care reviewed with Calista VARGHESE.
[2021-01-26] MEDS: albuterol 2.5 MG/3 ML nebule NEB SCH ×2 (19:53→23:27)
--- NOTE | 2021-01-26 20:26 | NUR ---
Report given to Theresa. Patient will be transferred
[2021-01-26] MEDS: sodium bicarbonate (8.4%) inj. 150 MEQ in dextrose 5%-water 1,000 ML IV SCH (20:45)
--- NOTE | 2021-01-26 20:51 | NUR ---
Respiratory paged to come help transfer to ICU. Awaiting for help. Patient CURRENT BP 88/34 HR 86
[2021-01-26] MEDS: insulin glargine (Lantus) pen - multi-dose SQ SCH (21:00)
--- NOTE | 2021-01-26 21:15 | NUR ---
PATIENT TRANSPORTED TO ICU WITH THE HELP OF DESIGNER, ENEDINA CHOWDARY AND ABIMAEL RICARDO.
--- NOTE | 2021-01-26 21:45 | NUR ---
Received on bipap, 15/5 with 40% FiO2, rate of 16. Pt alert and verbally responsive with periods of confusion.
--- NOTE | 2021-01-26 22:30 | NUR ---
Update given to Dr. Mcnally re: low UO, low BP; received orders for albumin first then levo if CVP>12 and BP remains low; requesting telemedicine consult; dr. ferreira aware.
[2021-01-26] MEDS ORDERED: albumin (Human) 5% 250ml 250 ML IV ONE ×2 (22:40)
[2021-01-26] MEDS: dextrose 5%-normal saline 1,000 ML IV SCH (23:41)
[2021-01-27] VITALS (36 sets, daily range): BP systolic 74–148; BP diastolic 36–73
[2021-01-27] MEDS ORDERED: NORepinephrine 8mg/ 250ml NS 250 ML IV PRN (00:55)
--- NOTE | 2021-01-27 01:00 | NUR ---
Pt with AFib with RVR, HR 140-160's, Dr. Contreras notified. Also notified of low blood pressure and abnormal EKG.
--- NOTE | 2021-01-27 01:30 | NUR ---
Dr. Roque on telemedicine with patient.
[2021-01-27] MEDS ORDERED: heparin 10,000 units/1 ML INJ IV ONE (01:45)
[2021-01-27] MEDS ORDERED: heparin 10,000 units/1 ML INJ IV PRN (01:45)
[2021-01-27] MEDS: phenylephrine inj 50 MG in normal saline 250ml IV soln 245 ML IV PRN (02:03)
[2021-01-27] MEDS: heparin 25,000 UNIT/250ml bag 250 ML IV SCH ×2 (02:15→14:59)
[2021-01-27 03:05] LABS: BASOPHILS % (AUTO) 0.1 % (0-1); EOSINOPHILS % (AUTO) 0 % (0-6); HEMATOCRIT 26.6 % (42.0-52.0); HEMOGLOBIN 9.1 g/dl (14.0-17.9); LYMPHOCYTES # (AUTO) 0.5 X10'3 (1.1-4.8); LYMPHOCYTES % (AUTO) 5.9 % (21-51); MEAN CORPUSCULAR HEMOGLOBIN 31.4 PG (27.0-31.0); MEAN CORPUSCULAR VOLUME 92.5 FL (78-98); MEAN PLATELET VOLUME 8.3 FL (7.4-10.4); MONOCYTES # (AUTO) 0.4 X10'3 (0-0.9); MONOCYTES % (AUTO) 4.8 % (2-12); NEUTROPHILS # (AUTO) 7.4 X10'3 (1.8-7.7); NEUTROPHILS % (AUTO) 89.2 % (42-75); PLATELET COUNT 129 X10'3 (140-440); RED BLOOD COUNT 2.88 X10'6 (4.70-6.10); RED CELL DISTRIBUTION WIDTH 15.1 % (11.5-14.5); WHITE BLOOD COUNT 8.3 X10'3 (4.5-11.0)
[2021-01-27 03:23] LABS: ALANINE AMINOTRANSFERASE 14 U/L (12-78); ALBUMIN 3.3 G/DL (3.4-5.0); ALBUMIN/GLOBULIN RATIO 1.1 (1.1-1.5); ALKALINE PHOSPHATASE 83 IU/L (46-116); ANION GAP 14 (8-16); ASPARTATE AMINO TRANSFERASE 30 U/L (10-37); BILIRUBIN,TOTAL 0.4 MG/DL (0.1-1.0); BLOOD UREA NITROGEN 54 MG/DL (7-18); BUN/CREATININE RATIO 11.7 (5.4-32.0); CALCIUM 7.5 MG/DL (8.5-10.1); CHLORIDE 108 MMOL/L (99-107); CREATININE 4.61 MG/DL (0.60-1.10); GLUCOSE 203 MG/DL (70-104); MAGNESIUM 1.4 MG/DL (1.5-2.4); PHOSPHORUS 3.3 MG/DL (2.3-4.5); POTASSIUM 5.1 MMOL/L (3.5-5.1); SODIUM 143 MMOL/L (135-145); TOTAL CARBON DIOXIDE 20.7 MMOL/L (24-32); TOTAL PROTEIN 6.3 G/DL (6.4-8.2); eGFR 13 ML/MIN
[2021-01-27] MEDS: albuterol 2.5 MG/3 ML nebule NEB SCH ×6 (04:12→23:28)
[2021-01-27 08:14] LABS: CLARITY,URINE CLOUDY (Clear); COLOR,URINE YELLOW (Yellow); GLUCOSE, URINE NEGATIVE (Neg); KETONES,URINE TRACE mg/dl (Neg); OCCULT BLOOD,URINE LARGE (Neg); PROTEIN,URINE 30 mg/dl (Neg); UA COLLECTION TYPE FOLEY CATH
[2021-01-27 08:15] LABS: LEUKOCYTE ESTERASE ,URINE NEGATIVE (Neg); NITRITES, URINE NEGATIVE (Neg); UROBILINOGEN,URINE 0.2 E.U/dL (0.2-1.0)
[2021-01-27 08:19] LABS: BACTERIA,URINE NONE SEEN /HPF (Neg); MUCUS STRANDS FEW /LPF (Neg); SQUAMOUS EPITHELIAL CELL,UR NONE SEEN /LPF (FEW); WBC,URINE 0-4 /HPF (0-4)
[2021-01-27 08:20] LABS: AMORPHOUS URATES 1+
[2021-01-27 08:28] LABS: ABG BASE EXCESS -5.6 mmol/L (-2.0-2.0); ABG HCO3 20.6 mmol/L (22.0-26.0); ABG OXYGEN SATURATION 96.2 % (94-97); ABG PCO2 (T) 43.7 mmHg (35.0-48.0); ABG PO2 (T) 83.9 mmHg (75.0-100.0); FCOHb 0.3 % (0.0-3.9); FMetHb 0.4 % (0.0-1.5); FO2Hb 95.5 % (94-97); RESPIRATORY RATE 16 b/min; TOTAL HEMOGLOBIN 10.1 G/dl (14.0-18.0)
[2021-01-27 08:30] LABS: TOTAL PROTEIN,URINE RANDOM 129.9 MG/DL
[2021-01-27 08:44] LABS: UA EOSINOPHILS NO EOS /HPF
[2021-01-27] MEDS: SODIUM ZIRCONIUM CYCLOSILICATE 10 GM POWD.PACK PO SCH ×3 (13:00→22:03)
[2021-01-27] MEDS ORDERED: metoprolol tartrate 1mg/ml inj IV ONE (13:05)
[2021-01-27] MEDS: gabapentin 300mg capsule PO SCH (13:11)
[2021-01-27] MEDS: sodium bicarbonate (8.4%) inj. 150 MEQ in dextrose 5%-water 1,000 ML IV SCH (13:55)
[2021-01-27] MEDS: insulin Lispro (HumaLOG) vial - multi-dose SQ SCH (15:06)
--- NOTE | 2021-01-27 16:56 | NUR ---
0645- Pt assessed, Blood drawn and UA obtained. 0700- Pt calm and cooperative, AAOx4, removed BiPap for neuro assessment and oral medications; pt O2 requirements tolerated well, but swallowing appears to be delayed. Pt and family states this is his normal, MD and charge nurse notified, 2nd med dose held. New orders obtained, plan for swallow eval. 0830- MD rounded, ABG obtained, Bipap settings changed 1030- Followed up with lab on results, Lab stated new orders needed. New orders entered per protocol, and redrawn x2. 1100- MD rounded, no new orders, Family educated on tx plan 1245- Pt in AFIB, MD notified, New order obtained. 1330- Hep gtt on hold 1500- MD notified of PTT result, new orders obtained. 1600- gtt restarted ; VS stable Addendum: 01/27/21 at 1758 by Margarita Antunez RN 1755- Beginning of shift Chest Tube drain level 660 ml , End of shift drain level 860 ml , 200 ml Total
[2021-01-27] MEDS: insulin glargine (Lantus) pen - multi-dose SQ SCH (21:00)
[2021-01-27] MEDS: dextrose 5%-normal saline 1,000 ML IV SCH (22:03)
--- NOTE | 2021-01-27 23:17 | NUR ---
PTT 120 sec., heparin stopped per protocol.
[2021-01-28] VITALS (32 sets, daily range): BP systolic 119–199; BP diastolic 40–143
[2021-01-28] MEDS: phenylephrine inj 50 MG in normal saline 250ml IV soln 245 ML IV PRN ×2 (00:43→11:14)
--- NOTE | 2021-01-28 01:30 | NUR ---
Heparin infusion started back @1100 units/hr per protocol.
[2021-01-28] MEDS: albuterol 2.5 MG/3 ML nebule NEB SCH ×6 (02:38→23:03)
[2021-01-28 03:00] LABS: BASOPHILS % (AUTO) 0.2 % (0-1); EOSINOPHILS % (AUTO) 0.1 % (0-6); HEMATOCRIT 26.3 % (42.0-52.0); HEMOGLOBIN 8.7 g/dl (14.0-17.9); LYMPHOCYTES # (AUTO) 0.6 X10'3 (1.1-4.8); LYMPHOCYTES % (AUTO) 4.3 % (21-51); MEAN CORPUSCULAR HEMOGLOBIN 30.7 PG (27.0-31.0); MEAN CORPUSCULAR HGB CONC 33.3 g/dL (33.0-36.5); MEAN CORPUSCULAR VOLUME 92.4 FL (78-98); MEAN PLATELET VOLUME 8.7 FL (7.4-10.4); MONOCYTES # (AUTO) 0.7 X10'3 (0-0.9); MONOCYTES % (AUTO) 5.1 % (2-12); NEUTROPHILS # (AUTO) 11.7 X10'3 (1.8-7.7); NEUTROPHILS % (AUTO) 90.3 % (42-75); PLATELET COUNT 133 X10'3 (140-440); RED BLOOD COUNT 2.84 X10'6 (4.70-6.10); RED CELL DISTRIBUTION WIDTH 15.4 % (11.5-14.5); WHITE BLOOD COUNT 12.9 X10'3 (4.5-11.0)
[2021-01-28 03:41] LABS: TOTAL CELLS COUNTED 100
[2021-01-28 03:43] LABS: ANISOCYTOSIS FEW; PLATELET ESTIMATE DECREASED
[2021-01-28 04:04] LABS: ALANINE AMINOTRANSFERASE 13 U/L (12-78); ALBUMIN 2.6 G/DL (3.4-5.0); ALBUMIN/GLOBULIN RATIO 0.8 (1.1-1.5); ALKALINE PHOSPHATASE 88 IU/L (46-116); ANION GAP 13 (8-16); ASPARTATE AMINO TRANSFERASE 77 U/L (10-37); BILIRUBIN,TOTAL 0.5 MG/DL (0.1-1.0); BLOOD UREA NITROGEN 51 MG/DL (7-18); BUN/CREATININE RATIO 11.1 (5.4-32.0); CALCIUM 6.9 MG/DL (8.5-10.1); CHLORIDE 108 MMOL/L (99-107); CREATININE 4.59 MG/DL (0.60-1.10); GLUCOSE 274 MG/DL (70-104); MAGNESIUM 1.2 MG/DL (1.5-2.4); PHOSPHORUS 2.6 MG/DL (2.3-4.5); POTASSIUM 4.4 MMOL/L (3.5-5.1); SODIUM 143 MMOL/L (135-145); TOTAL CARBON DIOXIDE 21.7 MMOL/L (24-32); TOTAL PROTEIN 5.8 G/DL (6.4-8.2); eGFR 13 ML/MIN
[2021-01-28] MEDS: heparin 25,000 UNIT/250ml bag 250 ML IV SCH ×2 (04:13→21:03)
--- NOTE | 2021-01-28 05:05 | NUR ---
PTT 43 sec, Heparin infusion increased to 1300 u/hr.
--- NOTE | 2021-01-28 07:07 | NUR ---
Patient in room ICU 2037. I have received report from Margarita VARGHESE and had the opportunity to ask questions and assume patient care.
[2021-01-28] MEDS: SODIUM ZIRCONIUM CYCLOSILICATE 10 GM POWD.PACK PO SCH ×3 (08:00→21:00)
--- NOTE | 2021-01-28 09:02 | NUR ---
EMAR lantus not given on noc shift no admin med
[2021-01-28] MEDS: sodium bicarbonate (8.4%) inj. 150 MEQ in dextrose 5%-water 1,000 ML IV SCH (09:05)
--- NOTE | 2021-01-28 09:20 | NUR ---
Called DR Bermudez in regards to patients sudden increase in heart rate of 130 to 150 in atrial fibrillation, ordered 5mg metoprolol q6
--- NOTE | 2021-01-28 09:30 | NUR ---
Upon entering the patients room he asked me to help him find his phone, his speech was slurred and bilateral upper extremities were uncoordinated, asked him his name, and where he was. He answered appropriately. asked him, to smile and stick his tongue out, his tongue deviated to his right and there was a slight droop in his smile on the left side as well as a slight droop to the left eye. I called Charge nurse to come evaluate the patient as well, she then called Dr. Bermudez, he evaluated him as well,a stroke alert was called and he ordered a stat CT, Stroke nurse is bedside and assisting in a neuro consult once back from CT results were called to Dr. Bermudez and an mri/mra was ordered. Per Dr Joshi keep systolic blood pressure above 170. Dr. Joshi also called and informed Dr. Castellano whom is covering for Dr. Mcnally and informed him on the recent changes
[2021-01-28] MEDS: metoprolol tartrate 1mg/ml inj IV SCH ×3 (09:43→21:14)
[2021-01-28 13:43] LABS: ALANINE AMINOTRANSFERASE 9 U/L (12-78); ALBUMIN 2.7 G/DL (3.4-5.0); ALBUMIN/GLOBULIN RATIO 0.8 (1.1-1.5); ALKALINE PHOSPHATASE 101 IU/L (46-116); ANION GAP 10 (8-16); ASPARTATE AMINO TRANSFERASE 72 U/L (10-37); BILIRUBIN,TOTAL 0.6 MG/DL (0.1-1.0); BLOOD UREA NITROGEN 52 MG/DL (7-18); BUN/CREATININE RATIO 11.1 (5.4-32.0); CALCIUM 7.3 MG/DL (8.5-10.1); CHLORIDE 108 MMOL/L (99-107); CREATININE 4.68 MG/DL (0.60-1.10); GLUCOSE 144 MG/DL (70-104); POTASSIUM 4.7 MMOL/L (3.5-5.1); SODIUM 142 MMOL/L (135-145); TOTAL CARBON DIOXIDE 24.5 MMOL/L (24-32); TOTAL PROTEIN 6.2 G/DL (6.4-8.2); eGFR 12 ML/MIN
[2021-01-28] MEDS: dextrose 5%-normal saline 1,000 ML IV SCH (15:08)
[2021-01-28] MEDS ORDERED: phenylephrine inj 50 MG in normal saline 250ml IV soln 245 ML IV PRN (16:43)
--- NOTE | 2021-01-28 18:06 | NUR ---
Problems reprioritized. Patient report given, questions answered & plan of care reviewed with Danisha Diaz.
--- NOTE | 2021-01-28 20:00 | NUR ---
PTT 65 seconds, no rate changes. Heparin infusing @ 1300u/hr.
[2021-01-28] MEDS: insulin glargine (Lantus) pen - multi-dose SQ SCH (21:00)
[2021-01-29] VITALS (24 sets, daily range): BP systolic 103–238; BP diastolic 56–145
[2021-01-29] MEDS: metoprolol tartrate 1mg/ml inj IV SCH ×4 (02:00→21:01)
[2021-01-29 03:02] LABS: BASOPHILS % (AUTO) 0.1 % (0-1); EOSINOPHILS % (AUTO) 0.3 % (0-6); HEMATOCRIT 25.9 % (42.0-52.0); HEMOGLOBIN 8.6 g/dl (14.0-17.9); LYMPHOCYTES # (AUTO) 0.5 X10'3 (1.1-4.8); LYMPHOCYTES % (AUTO) 4.1 % (21-51); MEAN CORPUSCULAR HEMOGLOBIN 30.7 PG (27.0-31.0); MEAN CORPUSCULAR HGB CONC 33.3 g/dL (33.0-36.5); MEAN PLATELET VOLUME 8.4 FL (7.4-10.4); MONOCYTES # (AUTO) 0.6 X10'3 (0-0.9); NEUTROPHILS # (AUTO) 11.9 X10'3 (1.8-7.7); NEUTROPHILS % (AUTO) 90.5 % (42-75); PLATELET COUNT 125 X10'3 (140-440); RED BLOOD COUNT 2.82 X10'6 (4.70-6.10); RED CELL DISTRIBUTION WIDTH 15.1 % (11.5-14.5); WHITE BLOOD COUNT 13.1 X10'3 (4.5-11.0)
[2021-01-29 03:49] LABS: ALANINE AMINOTRANSFERASE 8 U/L (12-78); ALBUMIN 2.3 G/DL (3.4-5.0); ALBUMIN/GLOBULIN RATIO 0.7 (1.1-1.5); ALKALINE PHOSPHATASE 95 IU/L (46-116); ANION GAP 8 (8-16); ASPARTATE AMINO TRANSFERASE 57 U/L (10-37); BILIRUBIN,TOTAL 0.5 MG/DL (0.1-1.0); BLOOD UREA NITROGEN 50 MG/DL (7-18); BUN/CREATININE RATIO 11.4 (5.4-32.0); CALCIUM 7.2 MG/DL (8.5-10.1); CHLORIDE 108 MMOL/L (99-107); CREATININE 4.38 MG/DL (0.60-1.10); GLUCOSE 163 MG/DL (70-104); MAGNESIUM 1.3 MG/DL (1.5-2.4); PHOSPHORUS 2.9 MG/DL (2.3-4.5); POTASSIUM 4.1 MMOL/L (3.5-5.1); SODIUM 143 MMOL/L (135-145); TOTAL CARBON DIOXIDE 27.2 MMOL/L (24-32); TOTAL PROTEIN 5.7 G/DL (6.4-8.2); eGFR 13 ML/MIN
[2021-01-29] MEDS: albuterol 2.5 MG/3 ML nebule NEB SCH ×6 (04:14→23:22)
--- NOTE | 2021-01-29 06:00 | NUR ---
Patient in room ICU 2037. I have received report from Theresa VARGHESE and had the opportunity to ask questions and assume patient care.
--- NOTE | 2021-01-29 06:45 | NUR ---
Dr. Dali garvey, notified that pt was having chest pain, 12 lead EKG ordered
--- NOTE | 2021-01-29 07:27 | NUR ---
Speech therapist at bedside, pt to remain NPO failed swallow study
[2021-01-29] MEDS: heparin 25,000 UNIT/250ml bag 250 ML IV SCH (08:30)
[2021-01-29] MEDS: sodium bicarbonate (8.4%) inj. 150 MEQ in dextrose 5%-water 1,000 ML IV SCH ×2 (09:50→23:59)
[2021-01-29] MEDS: dextrose 5%-normal saline 1,000 ML IV SCH (10:40)
[2021-01-29] MEDS ORDERED: vancomycin/NS 1 GM ADD-VANTAGE 250 ML X 1 DOSE IV PRN (11:20)
[2021-01-29] MEDS ORDERED: vancomycin/NS 1 GM ADD-VANTAGE 250 ML X 1 DOSE IV ONE (11:20)
[2021-01-29 11:31] LABS: CLARITY,URINE SLIGHTLY CLOUDY (Clear); COLOR,URINE STRAW (Yellow); GLUCOSE, URINE 100 mg/dl (Neg); KETONES,URINE NEGATIVE (Neg); LEUKOCYTE ESTERASE ,URINE NEGATIVE (Neg); NITRITES, URINE NEGATIVE (Neg); OCCULT BLOOD,URINE MODERATE (Neg); PROTEIN,URINE 30 mg/dl (Neg); UA COLLECTION TYPE FOLEY CATH; UROBILINOGEN,URINE 0.2 E.U/dL (0.2-1.0)
[2021-01-29 11:43] LABS: BACTERIA,URINE FEW /HPF (Neg); RBC,URINE 0-2 /HPF (0-2); SQUAMOUS EPITHELIAL CELL,UR FEW /LPF (FEW)
[2021-01-29 11:44] LABS: WBC,URINE 0-4 /HPF (0-4)
[2021-01-29] MEDS: levoTHYROXINE sod inj. 100mcg/5 ml vial IV SCH (12:21)
[2021-01-29] MEDS: pantoprazole 40 MG vial IV SCH (12:27)
--- NOTE | 2021-01-29 12:58 | NUR ---
physicial therapy at bedside, pt states he feels shaky, but was to stand at bedside
[2021-01-29] MEDS ORDERED: piperacillin/tazo 3.375gm/50ml 50 ML IV SCH (16:00)
[2021-01-29] MEDS ORDERED: amiodarone 150mg/dext, iso-os 100 ML IV ONE (16:34)
[2021-01-29] MEDS ORDERED: amiodarone/D5 360MG/200ML BAG 200 ML IV ONE ×2 (16:34→21:21)
[2021-01-29] MEDS: NORepinephrine 8mg/ 250ml NS 250 ML IV SCH (17:19)
--- NOTE | 2021-01-29 19:00 | NUR ---
Problems reprioritized. Patient report given, questions answered & plan of care reviewed with Vishal VARGHESE.
[2021-01-29] MEDS: piperacillin/tazobactam inj. 3.375 GM in NS 50ml IV SCH (20:00)
[2021-01-29] MEDS: insulin glargine (Lantus) pen - multi-dose SQ SCH (21:05)
[2021-01-30] VITALS (19 sets, daily range): BP systolic 138–200; BP diastolic 61–103
[2021-01-30] MEDS: NORepinephrine 8mg/ 250ml NS 250 ML IV SCH ×2 (02:01→14:36)
[2021-01-30 02:39] LABS: ABG BASE EXCESS 2.5 mmol/L (-2.0-2.0); ABG OXYGEN SATURATION 94.5 % (94-97); ALLEN'S TEST POSITIVE; FCOHb 0.3 % (0.0-3.9); FLOW 3 L/min; FMetHb 0.3 % (0.0-1.5); FO2Hb 93.9 % (94-97); PATIENT TEMPERATURE 37.3
[2021-01-30 03:04] LABS: ALANINE AMINOTRANSFERASE 10 U/L (12-78); ALBUMIN 2.1 G/DL (3.4-5.0); ALBUMIN/GLOBULIN RATIO 0.6 (1.1-1.5); ALKALINE PHOSPHATASE 96 IU/L (46-116); ANION GAP 7 (8-16); ASPARTATE AMINO TRANSFERASE 33 U/L (10-37); BILIRUBIN,TOTAL 0.5 MG/DL (0.1-1.0); BLOOD UREA NITROGEN 48 MG/DL (7-18); BUN/CREATININE RATIO 11.6 (5.4-32.0); CALCIUM 7.1 MG/DL (8.5-10.1); CHLORIDE 108 MMOL/L (99-107); CREATININE 4.14 MG/DL (0.60-1.10); GLUCOSE 249 MG/DL (70-104); MAGNESIUM 1.4 MG/DL (1.5-2.4); PHOSPHORUS 3.2 MG/DL (2.3-4.5); POTASSIUM 3.9 MMOL/L (3.5-5.1); SODIUM 145 MMOL/L (135-145); TOTAL CARBON DIOXIDE 29.9 MMOL/L (24-32); TOTAL PROTEIN 5.5 G/DL (6.4-8.2); VANCOMYCIN,RANDOM 10.1 UG/ML; eGFR 14 ML/MIN
[2021-01-30 03:05] LABS: BASOPHILS % (AUTO) 0.1 % (0-1); EOSINOPHILS % (AUTO) 0.3 % (0-6); HEMATOCRIT 24.1 % (42.0-52.0); HEMOGLOBIN 8.2 g/dl (14.0-17.9); LYMPHOCYTES # (AUTO) 0.5 X10'3 (1.1-4.8); LYMPHOCYTES % (AUTO) 4.3 % (21-51); MEAN CORPUSCULAR HGB CONC 33.9 g/dL (33.0-36.5); MEAN CORPUSCULAR VOLUME 91.5 FL (78-98); MEAN PLATELET VOLUME 8.6 FL (7.4-10.4); MONOCYTES # (AUTO) 0.7 X10'3 (0-0.9); MONOCYTES % (AUTO) 6.2 % (2-12); NEUTROPHILS # (AUTO) 9.8 X10'3 (1.8-7.7); NEUTROPHILS % (AUTO) 89.1 % (42-75); PLATELET COUNT 120 X10'3 (140-440); RED BLOOD COUNT 2.63 X10'6 (4.70-6.10)
[2021-01-30] MEDS: metoprolol tartrate 1mg/ml inj IV SCH ×4 (03:05→21:35)
[2021-01-30] MEDS: VANCOMYCIN LEVEL IV SCH (03:05)
[2021-01-30] MEDS: albuterol 2.5 MG/3 ML nebule NEB SCH ×6 (03:49→23:54)
[2021-01-30 04:59] LABS: PARTIAL THROMBOPLASTIN TIME 56 SECONDS (22-32)
--- NOTE | 2021-01-30 06:00 | NUR ---
Patient in room ICU 2038. I have received report from Vishal VARGHESE and had the opportunity to ask questions and assume patient care.
[2021-01-30] MEDS: dextrose 5%-normal saline 1,000 ML IV SCH (07:18)
[2021-01-30] MEDS ORDERED: amiodarone 150mg/dext, iso-os 100 ML IV ONE (07:25)
[2021-01-30] MEDS ORDERED: amiodarone/D5 360MG/200ML BAG 200 ML IV SCH ×2 (07:30→07:31)
[2021-01-30] MEDS ORDERED: vancomycin/NS 1 GM ADD-VANTAGE 250 ML X 1 DOSE IV ONE (07:30)
[2021-01-30] MEDS ORDERED: potassium Cl 20 mEq SR tablet PO PRN ×2 (07:35)
[2021-01-30] MEDS: levoTHYROXINE sod inj. 100mcg/5 ml vial IV SCH (08:00)
[2021-01-30] MEDS: pantoprazole 40 MG vial IV SCH (08:08)
[2021-01-30] MEDS: piperacillin/tazobactam inj. 3.375 GM in NS 50ml IV SCH ×2 (08:09→22:41)
[2021-01-30] MEDS: K and/or MAG REPLACEMENT MC SCH (08:09)
--- NOTE | 2021-01-30 09:43 | NUR ---
physicial therapy at bedside, pt was able to ambulate and get in chair. pt remains in chair for a little PT states they will return and help him back to bed
[2021-01-30] MEDS ORDERED: magnesium Cl slow-release 64mg tablet PO PRN (10:05)
[2021-01-30] MEDS ORDERED: magnesium 2GM in 50ml NS 50 ML IV PRN (10:05)
[2021-01-30] MEDS ORDERED: magnesium 4gm in 100ml NS 100 ML IV PRN (10:05)
--- NOTE | 2021-01-30 11:23 | NUR ---
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 Pt seen by CONTRACT ASSOCIATE today and recommended Puree w/ HTL, pending PO intake. Will monitor need for ONS as pt on day 5 of no nutrition. Pt also noted w/ generalized 4+ edema and mild weakness. Pt meets minimum criteria for severe malnutrition. Pt has been receiving D5 NS at 50ml/hr though to be stopped today per Drink Mixer. D/w MD recommendation for routine bowel care. Will continue to monitor PO trends and make recommendations as appropriate. Recs: 1. Continue Puree HTL per CONTRACT ASSOCIATE/MD recs 2. Monitor need for ONS pending PO intake 3. Bowel care per rx 4. Weekly wts 5. IF PO inadequate, consider TF to meet nutritional needs Addendum: 01/30/21 at [address] Amended: Links added.
[2021-01-30] MEDS: docusate sod 100mg capsule PO SCH ×2 (11:50→21:29)
[2021-01-30] MEDS ORDERED: furosemide 40mg/4ml inj IV ONE (17:50)
--- NOTE | 2021-01-30 18:48 | NUR ---
Problems reprioritized. Patient report given, questions answered & plan of care reviewed with Pallavi VARGHESE.
--- NOTE | 2021-01-30 19:29 | NUR ---
Received pt in bed AAOX4 appears to be in stable condition , pt oriented to room an staff. Pt is on levofed and amiodarone drips. Person and chest tube placed to gravity. Pt placed on tele, Pt is in no apparent distress. will cntinue to monitor pt for any adverse effects
[2021-01-30] MEDS: insulin glargine (Lantus) pen - multi-dose SQ SCH (21:00)
[2021-01-30] MEDS: magnesium hydroxide 30ml (MOM) UD suspension PO SCH (21:28)
[2021-01-30] MEDS: apixaban 5mg tablet PO SCH (21:29)
[2021-01-30] MEDS: lactobacillus rhamnosus 10,000 MMU CELLS/CAPSULE PO SCH (21:29)
[2021-01-30] MEDS: amiodarone 200mg tablet PO SCH (21:29)
[2021-01-30] MEDS: HYDROcodone/acetaminophen 10/325mg tab PO PRN (21:44)
--- NOTE | 2021-01-30 22:52 | NUR ---
Respiratory Page Lucio Hoyt rm [id number] Would like to be put on bipap. Thank you
[2021-01-31] VITALS (13 sets, daily range): BP systolic 87–145; BP diastolic 43–77
--- NOTE | 2021-01-31 02:23 | NUR ---
Pt is saturating 88-90 while on the machine ; Resp paged. The machine removed and pt placed on 4 liters of oxygen, now saturating 94-95. Awaiting Resp to see pt.
[2021-01-31] MEDS: albuterol 2.5 MG/3 ML nebule NEB SCH ×6 (03:00→23:36)
[2021-01-31] MEDS: VANCOMYCIN LEVEL IV SCH (03:00)
[2021-01-31] MEDS: metoprolol tartrate 1mg/ml inj IV SCH ×4 (04:36→20:00)
[2021-01-31 04:43] LABS: MAGNESIUM 1.8 MG/DL (1.5-2.4); POTASSIUM 3.9 MMOL/L (3.5-5.1); VANCOMYCIN,RANDOM 15.3 UG/ML
--- NOTE | 2021-01-31 07:05 | NUR ---
Patient in room PCU 3011. I have received report from Pallavi VARGHESE and had the opportunity to ask questions and assume patient care. Pt repositioned with pillows, alert to voice, CPAP in place. Rhonchi noted with naked ear. pt prompted to cough and clear throat. pt compliant. SPO2 93%. safety measures in place. no s/sx acute distress.
[2021-01-31] MEDS: K and/or MAG REPLACEMENT MC SCH (08:00)
[2021-01-31] MEDS: apixaban 5mg tablet PO SCH ×2 (08:13→20:37)
[2021-01-31] MEDS: lactobacillus rhamnosus 10,000 MMU CELLS/CAPSULE PO SCH ×2 (08:13→20:37)
[2021-01-31] MEDS: docusate sod 100mg capsule PO SCH ×2 (08:13→20:37)
[2021-01-31] MEDS: amiodarone 200mg tablet PO SCH (08:13)
[2021-01-31] MEDS: pantoprazole 40 MG vial IV SCH (08:13)
[2021-01-31] MEDS: piperacillin/tazobactam inj. 3.375 GM in NS 50ml IV SCH ×2 (08:14→20:42)
--- NOTE | 2021-01-31 08:16 | NUR ---
paged pharmacy for synthroid "good morning, i am unable to locate the synthroid IV. please advise. Zuly, Sally #[phone]"
--- NOTE | 2021-01-31 08:42 | NUR ---
RT paged pt continue with amy. paged RT for breathing tx.
[2021-01-31 09:11] LABS: BASOPHILS % (AUTO) 0.1 % (0-1); EOSINOPHILS % (AUTO) 0.4 % (0-6); HEMATOCRIT 28.5 % (42.0-52.0); HEMOGLOBIN 9.3 g/dl (14.0-17.9); LYMPHOCYTES # (AUTO) 0.3 X10'3 (1.1-4.8); LYMPHOCYTES % (AUTO) 2.2 % (21-51); MEAN CORPUSCULAR HEMOGLOBIN 30.5 PG (27.0-31.0); MEAN CORPUSCULAR HGB CONC 32.6 g/dL (33.0-36.5); MEAN CORPUSCULAR VOLUME 93.7 FL (78-98); MEAN PLATELET VOLUME 8.2 FL (7.4-10.4); MONOCYTES # (AUTO) 0.7 X10'3 (0-0.9); MONOCYTES % (AUTO) 6.5 % (2-12); NEUTROPHILS # (AUTO) 10.5 X10'3 (1.8-7.7); NEUTROPHILS % (AUTO) 90.8 % (42-75); PLATELET COUNT 145 X10'3 (140-440); RED BLOOD COUNT 3.04 X10'6 (4.70-6.10); RED CELL DISTRIBUTION WIDTH 15.4 % (11.5-14.5); WHITE BLOOD COUNT 11.6 X10'3 (4.5-11.0)
[2021-01-31 09:15] LABS: ALANINE AMINOTRANSFERASE 11 U/L (12-78); ALBUMIN 2.2 G/DL (3.4-5.0); ALBUMIN/GLOBULIN RATIO 0.6 (1.1-1.5); ALKALINE PHOSPHATASE 108 IU/L (46-116); ANION GAP 11 (8-16); ASPARTATE AMINO TRANSFERASE 31 U/L (10-37); BILIRUBIN,TOTAL 0.5 MG/DL (0.1-1.0); BLOOD UREA NITROGEN 47 MG/DL (7-18); BUN/CREATININE RATIO 10.5 (5.4-32.0); CHLORIDE 107 MMOL/L (99-107); CREATININE 4.47 MG/DL (0.60-1.10); GLUCOSE 139 MG/DL (70-104); POTASSIUM 3.9 MMOL/L (3.5-5.1); SODIUM 149 MMOL/L (135-145); TOTAL CARBON DIOXIDE 31.4 MMOL/L (24-32); eGFR 13 ML/MIN
--- NOTE | 2021-01-31 10:24 | NUR ---
RT to bedside, Pt spo2 dropped to low 80's. Pt suctioned and placed on high flow 02. Dr. Parry Paged. new order for ABG and continuous 02 sat monitoring.
[2021-01-31 10:34] LABS: ABG BASE EXCESS 3.5 mmol/L (-2.0-2.0); ABG HCO3 31.7 mmol/L (22.0-26.0); ABG OXYGEN SATURATION 90.2 % (94-97); ABG PCO2 (T) 69.5 mmHg (35.0-48.0); ABG PO2 (T) 62.5 mmHg (75.0-100.0); ALLEN'S TEST POSITIVE; FCOHb 0.3 % (0.0-3.9); FLOW 12 L/min; FMetHb 0.3 % (0.0-1.5); FO2Hb 89.7 % (94-97); TOTAL HEMOGLOBIN 10.5 G/dl (14.0-18.0)
--- NOTE | 2021-01-31 10:54 | NUR ---
critical pCO2: Dr. Parry Paged. "PAGER ID: [phone] MESSAGE: RE: 3011: Lai Lucio: critical ABG pCO2: 69.5. Pt now on 15LPM HF O2, SATs: 88(at best) RT placing pt on BIPAP. breathing labored and gurgly. -Sally #[phone]"
--- NOTE | 2021-01-31 11:13 | NUR ---
Pt on Bipap, breathing with decreased accessory muscle use. pt repositioned high in bed, HOB as high as tolerated (>45 degrees) to promote ventilation. conferred/notified Dawna VARGHESE charge nurse. Charge verbalized understanding of pt current health status and contacted Kim VARGHESE ICU charge nurse to notify of deterioration. will monitor closely.
[2021-01-31] MEDS: levoTHYROXINE sod inj. 100mcg/5 ml vial IV SCH (13:15)
--- NOTE | 2021-01-31 13:40 | NUR ---
Dr. Mcnally to see pt. Dr. mcnally notified of decreased spo2 this am, increase in o2 demand, and BIpap, as well as irregular tachycardia when pt off bipap. Dr. Mcnally acknowleged, and stated that pt needs to be OOB, using incentive spirometer. pt refused to do so at this time. Addendum: 01/31/21 at 1609 by Sally Weston RN Dr Mcnally instructed nurse to put chest tube to water seal.
--- NOTE | 2021-01-31 13:40 | NUR ---
Pt back in Aflutter/afib. HR 130's. Dr. Parry Paged. "PAGER ID: [phone] MESSAGE: RE: Lucio Hoyt: 3011: Pt HR 130's. [facility]. -Sally #[phone]"
--- NOTE | 2021-01-31 14:30 | NUR ---
Dr Alvarado to see pt Dr. alvarado notifed that pt right foot cold to touch, cap refill 4 sec, pedal pulse weak but present, discussed pt decompensation. per Dr. Alvarado, pt needs to be transferred back to ICU, and in the mean time, ABG stat, load pt with amio 150 and start drip per protocol. hold metoprolol.
[2021-01-31] MEDS ORDERED: amiodarone 150mg/dext, iso-os 100 ML IV ONE (14:35)
--- NOTE | 2021-01-31 14:39 | NUR ---
rt paged for ABG
[2021-01-31 15:22] LABS: ABG BASE EXCESS 2.8 mmol/L (-2.0-2.0); ABG HCO3 29.6 mmol/L (22.0-26.0); ABG OXYGEN SATURATION 98.9 % (94-97); ABG PCO2 (T) 57.3 mmHg (35.0-48.0); ABG PO2 (T) 149.8 mmHg (75.0-100.0); ALLEN'S TEST POSITIVE; FCOHb 0.2 % (0.0-3.9); FMetHb 0.3 % (0.0-1.5); FO2Hb 98.4 % (94-97); RESPIRATORY RATE 18 b/min; TIDAL VOLUME 567 mL; TOTAL HEMOGLOBIN 9.8 G/dl (14.0-18.0)
--- NOTE | 2021-01-31 15:29 | NUR ---
ABG results in. Dr. Parry Paged per request. "RE: Lucio Hoyt: 3011: ABG results back. pCO2 continue elevated at 57. pH: 7.331; pO2 149.8; HCO3: 29.6. FiO2 turned down to 55%. shall we transfer to ICU? -Sally #[phone] "
[2021-01-31] MEDS: amiodarone/D5 360MG/200ML BAG 200 ML IV SCH ×2 (15:47→20:40)
--- NOTE | 2021-01-31 16:00 | NUR ---
Report called to Kim ICU stainless steel finisher in preparation to transfer pt to ICU. all questions answered. RT paged for assistance in transferring pt on Bipap
--- NOTE | 2021-01-31 17:15 | NUR ---
pt transferred to ICU room 2037. Pt's babs called and updated. Babs grateful, verbalized understanding and agreement with plan of care.
--- NOTE | 2021-01-31 18:30 | NUR ---
Patient in room ICU 2037. I have received report from Ascencion VARGHESE and had the opportunity to ask questions and assume patient care.
[2021-01-31] MEDS: magnesium hydroxide 30ml (MOM) UD suspension PO SCH (20:37)
--- NOTE | 2021-01-31 21:00 | NUR ---
Dr Mcnally at bedside rounding, updated him on PT condition. Made him aware that 2000 dose of metoprolol held d/t low BP, order received to D/C it. Also received verbal order to start Mucomyst breathing treatments d/t PT having difficulty coughing uo and clearing secretions. Will continue to monitor.
[2021-01-31] MEDS: insulin glargine (Lantus) pen - multi-dose SQ SCH (21:39)
[2021-01-31] MEDS: insulin Lispro (HumaLOG) vial - multi-dose SQ SCH (21:40)
[2021-01-31] MEDS ORDERED: NORepinephrine 8mg/ 250ml NS 250 ML IV PRN (23:25)
[2021-02-01] VITALS (26 sets, daily range): BP systolic 87–133; BP diastolic 36–91
[2021-02-01] MEDS: amiodarone/D5 360MG/200ML BAG 200 ML IV SCH ×4 (02:45→20:45)
[2021-02-01] MEDS: VANCOMYCIN LEVEL IV SCH (03:00)
[2021-02-01] MEDS: acetylcysteine 200 MG/ml 4ml vial INH SCH ×7 (03:16→23:31)
[2021-02-01] MEDS: albuterol 2.5 MG/3 ML nebule NEB SCH ×6 (03:17→23:31)
[2021-02-01] MEDS: insulin Lispro (HumaLOG) vial - multi-dose SQ SCH (03:28)
[2021-02-01 04:12] LABS: BASOPHILS % (AUTO) 0.1 % (0-1); EOSINOPHILS % (AUTO) 0.2 % (0-6); HEMATOCRIT 26.2 % (42.0-52.0); HEMOGLOBIN 8.8 g/dl (14.0-17.9); LYMPHOCYTES # (AUTO) 0.2 X10'3 (1.1-4.8); LYMPHOCYTES % (AUTO) 2.5 % (21-51); MEAN CORPUSCULAR HEMOGLOBIN 31.3 PG (27.0-31.0); MEAN CORPUSCULAR HGB CONC 33.5 g/dL (33.0-36.5); MEAN CORPUSCULAR VOLUME 93.4 FL (78-98); MEAN PLATELET VOLUME 8.8 FL (7.4-10.4); MONOCYTES # (AUTO) 0.5 X10'3 (0-0.9); MONOCYTES % (AUTO) 5.2 % (2-12); NEUTROPHILS # (AUTO) 8.8 X10'3 (1.8-7.7); PLATELET COUNT 138 X10'3 (140-440); RED CELL DISTRIBUTION WIDTH 15.7 % (11.5-14.5); WHITE BLOOD COUNT 9.6 X10'3 (4.5-11.0)
[2021-02-01 04:26] LABS: ALANINE AMINOTRANSFERASE 10 U/L (12-78); ALBUMIN 1.9 G/DL (3.4-5.0); ALBUMIN/GLOBULIN RATIO 0.5 (1.1-1.5); ALKALINE PHOSPHATASE 93 IU/L (46-116); ANION GAP 10 (8-16); ASPARTATE AMINO TRANSFERASE 19 U/L (10-37); BILIRUBIN,TOTAL 0.6 MG/DL (0.1-1.0); BLOOD UREA NITROGEN 59 MG/DL (7-18); BUN/CREATININE RATIO 11.1 (5.4-32.0); CALCIUM 8.3 MG/DL (8.5-10.1); CHLORIDE 107 MMOL/L (99-107); CREATININE 5.32 MG/DL (0.60-1.10); GLUCOSE 165 MG/DL (70-104); MAGNESIUM 2.1 MG/DL (1.5-2.4); SODIUM 147 MMOL/L (135-145); TOTAL CARBON DIOXIDE 30.2 MMOL/L (24-32); TOTAL PROTEIN 5.6 G/DL (6.4-8.2); VANCOMYCIN,RANDOM 14.8 UG/ML; eGFR 11 ML/MIN
--- NOTE | 2021-02-01 06:39 | NUR ---
Problems reprioritized. Patient report given, questions answered & plan of care reviewed with Ascencion VARGHESE.
[2021-02-01] MEDS ORDERED: pantoprazole 40mg Tablet.DR PO SCH (07:30)
[2021-02-01] MEDS: levoTHYROXINE sod inj. 100mcg/5 ml vial IV SCH (08:30)
[2021-02-01] MEDS: piperacillin/tazobactam inj. 3.375 GM in NS 50ml IV SCH ×2 (08:31→20:17)
[2021-02-01] MEDS: K and/or MAG REPLACEMENT MC SCH (08:31)
[2021-02-01] MEDS: lactobacillus rhamnosus 10,000 MMU CELLS/CAPSULE PO SCH ×2 (09:00→20:17)
[2021-02-01] MEDS: docusate sod 100mg capsule PO SCH (09:00)
[2021-02-01] MEDS: apixaban 5mg tablet PO SCH (09:00)
[2021-02-01 09:03] LABS: ABG BASE EXCESS 2.1 mmol/L (-2.0-2.0); ABG HCO3 28.2 mmol/L (22.0-26.0); ABG OXYGEN SATURATION 94.7 % (94-97); ABG PCO2 (T) 51.1 mmHg (35.0-48.0); ABG PO2 (T) 72.6 mmHg (75.0-100.0); ALLEN'S TEST POSITIVE; FCOHb 0.3 % (0.0-3.9); FLOW 4 L/min; FMetHb 0.2 % (0.0-1.5); FO2Hb 94.2 % (94-97); PATIENT TEMPERATURE 36.7; TOTAL HEMOGLOBIN 9.5 G/dl (14.0-18.0)
[2021-02-01] MEDS ORDERED: vancomycin inj. 750 MG in normal saline 250ml IV soln 250 ML IV ONE (09:20)
[2021-02-01] MEDS ORDERED: LIDOcaine 1% W/epiNEPHrine 1:200,000 10ml vial ONE (09:34)
[2021-02-01] MEDS ORDERED: LIDOcaine 1%/PF 5ML 10 MG/ML VIAL ONE (09:34)
[2021-02-01] MEDS ORDERED: heparin 1,000unit/ml 10ml vial 10 ML ONE (09:42)
[2021-02-01] MEDS ORDERED: albumin (human) 25% 100ml IV 100 ML IV PRN (10:10)
[2021-02-01] MEDS ORDERED: EPOETIN ALFA-EPBX 20,000 UNIT/ML 1 ML MDV IV ONE (10:10)
[2021-02-01] MEDS ORDERED: heparin 1,000 units/ml 10ml inj HE ONE ×2 (10:15)
[2021-02-01] MEDS ORDERED: heparin, porcine 5000 units/ml vial SQ ONE (10:55)
--- NOTE | 2021-02-01 11:15 | NUR ---
Reassessment: Pt to start on dialysis today per MD note. RN states that pt is unsafe for PO at this time; aspirates w/ foods and meds. okay to start post-pyloric TF via corapk today, see recs below. LBM 01/23 though will start receiving bowel care once TF in place. Will continue to monitor TF tolerance and adjust needs as medically indicated. Recs: 1. Continuous TF using Nepro 1.8 at 55ml/hr goal providing 1320ml volume, 2376kcals, 107g protein, 963ml free water 2. Additional free water per Sort Supervisor; pt on dialysis 3. PALB QM/Th; daily wts 4. Routine bowel care 5. Monitor for TF tolerance Addendum: 02/01/21 at [address] Amended: Links added.
[2021-02-01 11:50] LABS: PREALBUMIN 6.9 MG/DL (19-36)
[2021-02-01] MEDS ORDERED: dextrose ORAL solution 15 GM/59 ML bottle CORPAK PRN ×2 (13:58)
[2021-02-01] MEDS ORDERED: POTASSIUM BICARB 20meq eff tab 20 MEQ TABLET.EFF CORPAK PRN ×2 (14:00→14:05)
[2021-02-01] MEDS: fentaNYL/PF 50MCG/1 ML 2ML syringe IV PRN (15:43)
[2021-02-01] MEDS: magnesium hydroxide 30ml (MOM) UD suspension CORPAK SCH (20:17)
[2021-02-01] MEDS: apixaban 5mg tablet CORPAK SCH (20:17)
[2021-02-01] MEDS: docusate sodium 100mg/10ml UD cup CORPAK SCH (20:18)
--- NOTE | 2021-02-01 20:42 | NUR ---
KUB verifying corpak in stomach; wire removed and meds given as ordered.
[2021-02-01] MEDS: insulin glargine (Lantus) pen - multi-dose SQ SCH (21:55)
[2021-02-02] VITALS (24 sets, daily range): BP systolic 90–146; BP diastolic 44–74
[2021-02-02] MEDS: HYDROcodone/acetaminophen 10/325mg tab PO PRN (01:29)
--- NOTE | 2021-02-02 01:44 | NUR ---
Charge nurse initiated tube feeding.
[2021-02-02] MEDS: VANCOMYCIN LEVEL IV SCH (03:00)
[2021-02-02 03:40] LABS: BASOPHILS % (AUTO) 0.1 % (0-1); EOSINOPHILS % (AUTO) 0.3 % (0-6); HEMATOCRIT 23.8 % (42.0-52.0); HEMOGLOBIN 8.1 g/dl (14.0-17.9); LYMPHOCYTES # (AUTO) 0.5 X10'3 (1.1-4.8); LYMPHOCYTES % (AUTO) 4.2 % (21-51); MEAN CORPUSCULAR HEMOGLOBIN 31.2 PG (27.0-31.0); MEAN CORPUSCULAR HGB CONC 34.1 g/dL (33.0-36.5); MEAN CORPUSCULAR VOLUME 91.5 FL (78-98); MEAN PLATELET VOLUME 7.9 FL (7.4-10.4); MONOCYTES # (AUTO) 0.6 X10'3 (0-0.9); MONOCYTES % (AUTO) 5.6 % (2-12); NEUTROPHILS # (AUTO) 9.8 X10'3 (1.8-7.7); NEUTROPHILS % (AUTO) 89.8 % (42-75); PLATELET COUNT 141 X10'3 (140-440); RED CELL DISTRIBUTION WIDTH 15.3 % (11.5-14.5); WHITE BLOOD COUNT 10.9 X10'3 (4.5-11.0)
[2021-02-02] MEDS: albuterol 2.5 MG/3 ML nebule NEB SCH ×6 (03:44→22:54)
[2021-02-02] MEDS: acetylcysteine 200 MG/ml 4ml vial INH SCH ×6 (03:44→22:54)
[2021-02-02 03:55] LABS: ALANINE AMINOTRANSFERASE 8 U/L (12-78); ALBUMIN 1.8 G/DL (3.4-5.0); ALBUMIN/GLOBULIN RATIO 0.5 (1.1-1.5); ALKALINE PHOSPHATASE 88 IU/L (46-116); ANION GAP 11 (8-16); ASPARTATE AMINO TRANSFERASE 18 U/L (10-37); BILIRUBIN,TOTAL 0.6 MG/DL (0.1-1.0); BLOOD UREA NITROGEN 43 MG/DL (7-18); BUN/CREATININE RATIO 9.8 (5.4-32.0); CALCIUM 7.8 MG/DL (8.5-10.1); CHLORIDE 106 MMOL/L (99-107); CREATININE 4.37 MG/DL (0.60-1.10); GLUCOSE 140 MG/DL (70-104); SODIUM 145 MMOL/L (135-145); TOTAL CARBON DIOXIDE 27.9 MMOL/L (24-32); TOTAL PROTEIN 5.4 G/DL (6.4-8.2); VANCOMYCIN,RANDOM 17.6 UG/ML; eGFR 14 ML/MIN
--- NOTE | 2021-02-02 05:37 | NUR ---
Patient in bed resting at this time. Patient had some mild agitation at beginning of shift. Repeated attempts to remove biPap. Reoriented patient and educated patient on need to keep mask in place. Patient C/O slight pain. Charge nurse administered pain medicine per order. Amiodarone drip infusing per order. vital signs documented in interventions. Tube feeding started per order by ABIMAEL Leija. Patient tolerating well at this time. Blood glucose monitoring continued. Chest tube in place. Yesika care and catheter care performed. Patient repositioned for comfort. No signs of increased agitation at end of shift. Updated family member of patient condition via telephone. No signs of distress noted at this time. Call light and personal belongings placed within reach.
[2021-02-02] MEDS: lactobacillus rhamnosus 10,000 MMU CELLS/CAPSULE PO SCH (07:20)
[2021-02-02] MEDS: apixaban 5mg tablet CORPAK SCH ×2 (07:20→19:35)
[2021-02-02] MEDS: docusate sodium 100mg/10ml UD cup CORPAK SCH ×2 (07:20→19:54)
[2021-02-02] MEDS: piperacillin/tazobactam inj. 3.375 GM in NS 50ml IV SCH ×2 (07:22→20:56)
[2021-02-02] MEDS: levoTHYROXINE sod inj. 100mcg/5 ml vial IV SCH (07:22)
[2021-02-02] MEDS: pantoprazole 40 MG vial IV SCH (07:22)
[2021-02-02] MEDS: amiodarone/D5 360MG/200ML BAG 200 ML IV SCH ×3 (07:23→20:59)
[2021-02-02] MEDS: lactobacillus rhamnosus 10,000 MMU CELLS/CAPSULE NG SCH ×2 (08:00→19:55)
[2021-02-02] MEDS ORDERED: albumin (human) 25% 100ml IV 100 ML IV PRN (09:05)
[2021-02-02] MEDS ORDERED: EPOETIN ALFA-EPBX 20,000 UNIT/ML 1 ML MDV IV ONE (09:05)
[2021-02-02] MEDS ORDERED: heparin 1,000 units/ml 10ml inj HE ONE ×2 (09:10)
[2021-02-02] MEDS ORDERED: mineral oil 133ml enema RC ONE (12:05)
--- NOTE | 2021-02-02 12:43 | NUR ---
F/u 02/02: Pt pulled corpak partially out pending IR placement post-pylorically w/ EN held until NG position confirmed per deck officer. No BM 10 days to receive enemas today per MD. Will monitor for TF restart and tolerance. Addendum: 02/02/21 at [address] Amended: Links added.
--- NOTE | 2021-02-02 16:02 | NUR ---
Attempted x4 to insert left picc line. 2x via left basilic vein, 2 x brachial veins. with the introducer inserted with the basilic vein but unable to thread picc line pas approx 15 cm. Brachial veins were hard to access and when accessed pt would move x2. Adelaida VARGHESE notified and Dr Garcia came to patient room and said to try other side on Friday. Friday I will reasses and retry PICC placement. Addendum: 02/02/21 at 1616 by Elba Alejandra RN Amended: Links added.
[2021-02-02] MEDS: methylnaltrexone br 12mg/0.6ml inj***SubQ only SQ SCH (16:57)
[2021-02-02] MEDS: fentaNYL/PF 50MCG/1 ML 2ML syringe IV PRN (17:19)
[2021-02-02] MEDS: magnesium hydroxide 30ml (MOM) UD suspension CORPAK SCH (21:00)
[2021-02-02] MEDS: insulin glargine (Lantus) pen - multi-dose SQ SCH (21:37)
[2021-02-03] VITALS (24 sets, daily range): BP systolic 93–151; BP diastolic 52–86
[2021-02-03] MEDS: amiodarone/D5 360MG/200ML BAG 200 ML IV SCH (02:45)
[2021-02-03] MEDS: VANCOMYCIN LEVEL IV SCH (03:00)
[2021-02-03] MEDS: acetylcysteine 200 MG/ml 4ml vial INH SCH ×5 (04:00→20:51)
[2021-02-03] MEDS: albuterol 2.5 MG/3 ML nebule NEB SCH ×5 (04:01→20:51)
[2021-02-03 05:06] LABS: BASOPHILS % (AUTO) 0.3 % (0-1); EOSINOPHILS # (AUTO) 0.1 X10'3 (0-0.9); EOSINOPHILS % (AUTO) 1.2 % (0-6); HEMATOCRIT 24.1 % (42.0-52.0); HEMOGLOBIN 8.1 g/dl (14.0-17.9); LYMPHOCYTES # (AUTO) 0.6 X10'3 (1.1-4.8); LYMPHOCYTES % (AUTO) 5.1 % (21-51); MEAN CORPUSCULAR HEMOGLOBIN 30.6 PG (27.0-31.0); MEAN CORPUSCULAR HGB CONC 33.6 g/dL (33.0-36.5); MEAN CORPUSCULAR VOLUME 90.8 FL (78-98); MONOCYTES # (AUTO) 0.5 X10'3 (0-0.9); MONOCYTES % (AUTO) 4.8 % (2-12); NEUTROPHILS # (AUTO) 9.8 X10'3 (1.8-7.7); NEUTROPHILS % (AUTO) 88.6 % (42-75); PLATELET COUNT 165 X10'3 (140-440); RED BLOOD COUNT 2.66 X10'6 (4.70-6.10); RED CELL DISTRIBUTION WIDTH 15.3 % (11.5-14.5); WHITE BLOOD COUNT 11.1 X10'3 (4.5-11.0)
[2021-02-03] MEDS: HYDROcodone/acetaminophen 10/325mg tab PO PRN (05:13)
[2021-02-03] MEDS: fentaNYL/PF 50MCG/1 ML 2ML syringe IV PRN ×2 (05:14→22:10)
[2021-02-03 05:38] LABS: ALANINE AMINOTRANSFERASE 9 U/L (12-78); ALBUMIN 2.1 G/DL (3.4-5.0); ALBUMIN/GLOBULIN RATIO 0.6 (1.1-1.5); ALKALINE PHOSPHATASE 91 IU/L (46-116); ANION GAP 9 (8-16); ASPARTATE AMINO TRANSFERASE 15 U/L (10-37); BILIRUBIN,TOTAL 0.6 MG/DL (0.1-1.0); BLOOD UREA NITROGEN 35 MG/DL (7-18); BUN/CREATININE RATIO 8.1 (5.4-32.0); CALCIUM 8.2 MG/DL (8.5-10.1); CHLORIDE 102 MMOL/L (99-107); CREATININE 4.31 MG/DL (0.60-1.10); GLUCOSE 112 MG/DL (70-104); MAGNESIUM 2.1 MG/DL (1.5-2.4); POTASSIUM 3.6 MMOL/L (3.5-5.1); SODIUM 139 MMOL/L (135-145); TOTAL CARBON DIOXIDE 27.8 MMOL/L (24-32); TOTAL PROTEIN 5.9 G/DL (6.4-8.2); VANCOMYCIN,RANDOM 14.7 UG/ML; eGFR 14 ML/MIN
--- NOTE | 2021-02-03 06:10 | NUR ---
Patient in bed resting no signs of distress noted . prn pain medication administered as ordered ,Amiodarone drip infusing per order. vital signs documented in interventions, Blood glucose monitoring continued. Chest tube in place. Yesika care and catheter care done. Patient repositioned for comfort. No signs of increased agitation at this time . Updated family member of patient condition via telephone. Call light within reach
[2021-02-03] MEDS: docusate sodium 100mg/10ml UD cup CORPAK SCH ×2 (08:00→20:00)
[2021-02-03] MEDS: piperacillin/tazobactam inj. 3.375 GM in NS 50ml IV SCH (08:02)
[2021-02-03] MEDS: pantoprazole 40 MG vial IV SCH (08:02)
[2021-02-03] MEDS: levoTHYROXINE sod inj. 100mcg/5 ml vial IV SCH (08:02)
[2021-02-03] MEDS: apixaban 5mg tablet CORPAK SCH (08:17)
[2021-02-03] MEDS: lactobacillus rhamnosus 10,000 MMU CELLS/CAPSULE NG SCH ×2 (08:17→20:00)
[2021-02-03] MEDS ORDERED: vancomycin inj. 750 MG in normal saline 250ml IV soln 250 ML IV ONE (10:10)
--- NOTE | 2021-02-03 10:44 | NUR ---
TPN consult: TC to RN who reports pt currently with no NG tube in place and NGT placement attempts by IR were unsuccessful. RN reports pt able to tolerate applesauce with medications however unable to tolerate any other PO intake at this time (ice, water, etc). Pt pending f/u BSS with ST on Friday as currently no ST coverage over the weekend. Per RN pt currently does not have a PIV so unable to do PPN and attempts at placing a PICC were unsuccessful though pt does have a central line. TPN recommendations below have been d/w clinical pharmacist. LBM 01/23, with routine bowel care available though not able to be given d/t NPO status. Pt receiving SQ Relistor per EMR. Will continue to follow closely. Recommendations: 1. Given no EN access or PIV, continuous TPN per MD using 2:1 Clinimix-E 5/20 at 100 mL/hr with additional 100 mL 20% intralipids at 8.33 mL/hr for 12 hours/day to provide 2500 mL total volume/day, 2312 kcal, 120 g AA, 480 g dextrose (3.08 mg/kg/min dext load), and 20 g lipids 2. Monitor need to change to non-E formula given pt on dialysis; electrolytes currently WNL 3. Prealbumin q Friday/ 4. Daily scaled weights 5. Once EN access, continuous TF using Nepro 1.8 at 55 mL/hr goal providing 1320 mL total volume/day, 2376 kcal, 107 g protein, and 963 mL water 6. Once TF, additional free water per MD as pt on dialysis 7. Routine bowel care and opioid antagonist per MD 8. PO diet advancement to regular as medically indicated pending f/u BSS with ST; renal diet if electrolytes are elevated Addendum: 02/03/21 at [address] Amended: Links added.
[2021-02-03] MEDS ORDERED: magnesium Cl slow-release 64mg tablet PO PRN (10:50)
[2021-02-03] MEDS ORDERED: sodium phosphate inj. 30 MMOL in dextrose 5%-water 250 ML IV PRN (10:50)
[2021-02-03] MEDS ORDERED: magnesium 4gm in 100ml NS 100 ML IV PRN (10:50)
[2021-02-03] MEDS ORDERED: Neutra Phos packet PO PRN (10:50)
[2021-02-03] MEDS ORDERED: potassium Cl 40MEQ/1/2NS 520ml 520 ML IV PRN ×2 (10:50)
[2021-02-03] MEDS ORDERED: potassium Cl 40MEQ/250ML bag 270 ML IV PRN ×2 (10:50)
[2021-02-03] MEDS ORDERED: Dextrose 10%-water IV solution 1,000 ML IV PRN (10:50)
[2021-02-03] MEDS ORDERED: sodium phosphate inj. 15 MMOL in dextrose 5%-water 250 ML IV PRN (10:50)
[2021-02-03] MEDS: K, MAG and/or Phos replacement - Verify level? MC SCH (10:50)
[2021-02-03] MEDS ORDERED: magnesium 2GM in 50ml NS 50 ML IV PRN (10:50)
[2021-02-03 11:23] LABS: PHOSPHORUS 3.3 MG/DL (2.3-4.5); PREALBUMIN 6.7 MG/DL (19-36); TRIGLYCERIDES 69 MG/DL (20-135)
[2021-02-03] MEDS ORDERED: ZINC/COPPER/MANGANESE/SELENIUM 1 ML, chromic chloride inj. 10 MCG in AA 5 %/CALCIUM/LYT... IV SCH (17:00)
[2021-02-03] MEDS: heparin, porcine 5000 units/ml vial SQ SCH (17:11)
[2021-02-03] MEDS: insulin regular, human U-100 3ml vial - multi-dose SQ SCH (21:25)
[2021-02-03] MEDS: insulin glargine (Lantus) pen - multi-dose SQ SCH (21:27)
[2021-02-03] MEDS: fat emulsion 20% inj. 100 ML IV SCH (21:41)
[2021-02-03] MEDS: magnesium hydroxide 30ml (MOM) UD suspension CORPAK SCH (21:41)
--- NOTE | 2021-02-03 22:00 | NUR ---
Pt in Bed AAOx4 , denied pain or any other discomfort at this time. Vitals signs monitoring in progress found to be stable, PM care done with mouth care. Pt able to assist with turning. TPN at 30 ml and lipids at 8.33 infusing to the left IJ. Right chest permacath with clean and intact dressing. Chest tube dressing changes done. Person to gravity with some output. Continue to monitor pt.
[2021-02-04] VITALS (23 sets, daily range): BP systolic 123–180; BP diastolic 55–79
[2021-02-04] MEDS: albuterol 2.5 MG/3 ML nebule NEB SCH ×7 (00:13→22:31)
[2021-02-04] MEDS: acetylcysteine 200 MG/ml 4ml vial INH SCH (00:13)
[2021-02-04] MEDS: fentaNYL/PF 50MCG/1 ML 2ML syringe IV PRN (00:17)
[2021-02-04] MEDS: heparin, porcine 5000 units/ml vial SQ SCH ×3 (00:22→17:17)
[2021-02-04] MEDS: insulin regular, human U-100 3ml vial - multi-dose SQ SCH ×4 (03:04→21:12)
--- NOTE | 2021-02-04 05:00 | NUR ---
Pt asleep arousal to stimuli, IV medications infusing well. Pt remains in stable condition. Pt turns to his back. Attempted to suction pt but no sputum obtained. PRN mouth care done. No signs of respiratory distress noted last night.
[2021-02-04] MEDS: K, MAG and/or Phos replacement - Verify level? MC SCH (07:20)
[2021-02-04] MEDS: pantoprazole 40 MG vial IV SCH (07:28)
[2021-02-04] MEDS: methylnaltrexone br 12mg/0.6ml inj***SubQ only SQ SCH (07:28)
[2021-02-04] MEDS: lactobacillus rhamnosus 10,000 MMU CELLS/CAPSULE NG SCH ×2 (08:00→20:00)
[2021-02-04] MEDS: docusate sodium 100mg/10ml UD cup CORPAK SCH ×2 (08:00→20:00)
[2021-02-04 08:14] LABS: BASOPHILS % (AUTO) 0.1 % (0-1); EOSINOPHILS # (AUTO) 0.1 X10'3 (0-0.9); EOSINOPHILS % (AUTO) 1.4 % (0-6); HEMATOCRIT 24.9 % (42.0-52.0); HEMOGLOBIN 8.4 g/dl (14.0-17.9); LYMPHOCYTES # (AUTO) 0.4 X10'3 (1.1-4.8); LYMPHOCYTES % (AUTO) 3.5 % (21-51); MEAN CORPUSCULAR HEMOGLOBIN 30.9 PG (27.0-31.0); MEAN CORPUSCULAR HGB CONC 33.7 g/dL (33.0-36.5); MEAN CORPUSCULAR VOLUME 91.7 FL (78-98); MEAN PLATELET VOLUME 8.1 FL (7.4-10.4); MONOCYTES # (AUTO) 0.6 X10'3 (0-0.9); MONOCYTES % (AUTO) 5.6 % (2-12); NEUTROPHILS # (AUTO) 9.1 X10'3 (1.8-7.7); NEUTROPHILS % (AUTO) 89.4 % (42-75); PLATELET COUNT 180 X10'3 (140-440); RED BLOOD COUNT 2.71 X10'6 (4.70-6.10); RED CELL DISTRIBUTION WIDTH 15.6 % (11.5-14.5); WHITE BLOOD COUNT 10.2 X10'3 (4.5-11.0)
[2021-02-04 08:24] LABS: ALANINE AMINOTRANSFERASE 9 U/L (12-78); ALBUMIN/GLOBULIN RATIO 0.5 (1.1-1.5); ALKALINE PHOSPHATASE 128 IU/L (46-116); ANION GAP 8 (8-16); ASPARTATE AMINO TRANSFERASE 15 U/L (10-37); BILIRUBIN,TOTAL 0.4 MG/DL (0.1-1.0); BLOOD UREA NITROGEN 48 MG/DL (7-18); BUN/CREATININE RATIO 8.1 (5.4-32.0); CALCIUM 8.4 MG/DL (8.5-10.1); CHLORIDE 104 MMOL/L (99-107); CREATININE 5.94 MG/DL (0.60-1.10); GLUCOSE 153 MG/DL (70-104); MAGNESIUM 2.6 MG/DL (1.5-2.4); PHOSPHORUS 4.5 MG/DL (2.3-4.5); POTASSIUM 3.9 MMOL/L (3.5-5.1); SODIUM 141 MMOL/L (135-145); TOTAL PROTEIN 6.1 G/DL (6.4-8.2); eGFR 9 ML/MIN
[2021-02-04] MEDS: levoTHYROXINE sod inj. 100mcg/5 ml vial IV SCH (08:39)
[2021-02-04] MEDS ORDERED: ZINC/COPPER/MANGANESE/SELENIUM 1 ML, chromic chloride inj. 10 MCG in AA 5 %/CALCIUM/LYT... IV SCH (15:28)
[2021-02-04] MEDS: magnesium hydroxide 30ml (MOM) UD suspension CORPAK SCH (20:11)
[2021-02-04] MEDS: ZINC/COPPER/MANGANESE/SELENIUM 1 ML, chromic chloride inj. 10 MCG in AA 5 %/CALCIUM/LYT... IV SCH (21:02)
[2021-02-04] MEDS: fat emulsion 20% inj. 100 ML IV SCH (21:02)
[2021-02-04] MEDS: insulin glargine (Lantus) pen - multi-dose SQ SCH (21:07)
[2021-02-05] VITALS (24 sets, daily range): BP systolic 135–188; BP diastolic 38–92
[2021-02-05] MEDS: heparin, porcine 5000 units/ml vial SQ SCH ×3 (00:53→15:51)
[2021-02-05] MEDS: albuterol 2.5 MG/3 ML nebule NEB SCH ×6 (02:50→23:37)
[2021-02-05 03:20] LABS: BASOPHILS % (AUTO) 0.1 % (0-1); EOSINOPHILS # (AUTO) 0.1 X10'3 (0-0.9); EOSINOPHILS % (AUTO) 0.7 % (0-6); HEMATOCRIT 24.2 % (42.0-52.0); HEMOGLOBIN 8.2 g/dl (14.0-17.9); LYMPHOCYTES # (AUTO) 0.4 X10'3 (1.1-4.8); LYMPHOCYTES % (AUTO) 4.3 % (21-51); MEAN CORPUSCULAR HEMOGLOBIN 31.1 PG (27.0-31.0); MEAN CORPUSCULAR HGB CONC 33.7 g/dL (33.0-36.5); MEAN CORPUSCULAR VOLUME 92.3 FL (78-98); MEAN PLATELET VOLUME 8.6 FL (7.4-10.4); MONOCYTES # (AUTO) 0.6 X10'3 (0-0.9); MONOCYTES % (AUTO) 6.2 % (2-12); NEUTROPHILS # (AUTO) 8.7 X10'3 (1.8-7.7); NEUTROPHILS % (AUTO) 88.7 % (42-75); PLATELET COUNT 189 X10'3 (140-440); RED BLOOD COUNT 2.63 X10'6 (4.70-6.10); RED CELL DISTRIBUTION WIDTH 15.4 % (11.5-14.5); WHITE BLOOD COUNT 9.8 X10'3 (4.5-11.0)
[2021-02-05 03:48] LABS: ALANINE AMINOTRANSFERASE 8 U/L (12-78); ALBUMIN 1.7 G/DL (3.4-5.0); ALBUMIN/GLOBULIN RATIO 0.4 (1.1-1.5); ALKALINE PHOSPHATASE 85 IU/L (46-116); ANION GAP 14 (8-16); ASPARTATE AMINO TRANSFERASE 13 U/L (10-37); BILIRUBIN,TOTAL 0.3 MG/DL (0.1-1.0); BLOOD UREA NITROGEN 68 MG/DL (7-18); BUN/CREATININE RATIO 9.8 (5.4-32.0); CALCIUM 7.9 MG/DL (8.5-10.1); CHLORIDE 101 MMOL/L (99-107); CREATININE 6.96 MG/DL (0.60-1.10); GLUCOSE 225 MG/DL (70-104); PHOSPHORUS 4.9 MG/DL (2.3-4.5); POTASSIUM 3.6 MMOL/L (3.5-5.1); PREALBUMIN 8.9 MG/DL (19-36); SODIUM 141 MMOL/L (135-145); TOTAL CARBON DIOXIDE 25.6 MMOL/L (24-32); TOTAL PROTEIN 5.7 G/DL (6.4-8.2); TRIGLYCERIDES 54 MG/DL (20-135); eGFR 8 ML/MIN
[2021-02-05] MEDS: K, MAG and/or Phos replacement - Verify level? MC SCH (08:00)
[2021-02-05] MEDS ORDERED: albumin (human) 25% 100ml IV 100 ML IV PRN (08:00)
[2021-02-05] MEDS ORDERED: EPOETIN ALFA-EPBX 20,000 UNIT/ML 1 ML MDV IV ONE (08:00)
[2021-02-05] MEDS ORDERED: heparin 1,000 units/ml 10ml inj HE ONE ×2 (08:00)
[2021-02-05] MEDS: pantoprazole 40 MG vial IV SCH (08:34)
[2021-02-05] MEDS: insulin regular, human U-100 3ml vial - multi-dose SQ SCH ×3 (08:34→22:12)
[2021-02-05] MEDS: levoTHYROXINE sod inj. 100mcg/5 ml vial IV SCH (08:37)
[2021-02-05] MEDS: lactobacillus rhamnosus 10,000 MMU CELLS/CAPSULE NG SCH ×2 (08:39→21:31)
[2021-02-05] MEDS: MVI, adult No.4 with vit. K 10 ML in dextrose 5% water 500ml 500 ML IV SCH ×2 (08:39)
[2021-02-05] MEDS: docusate sodium 100mg/10ml UD cup CORPAK SCH ×2 (08:44→21:31)
--- NOTE | 2021-02-05 10:00 | NUR ---
Patient out of bed with PT when patient stated he needed to have a BM. Primary RN in changing the linens so assisted in getting a BSC underneath patient. Once on BSC patient had a significant BM. Patient was then assisted in standing with PT so that RN could help clean the patient. Suddenly, patient's knees began to buckle and patient had a syncopal episode. Once more help arrived patient was picked up and placed back in bed. Once patient was back in bed he was able to open his eyes and he was alert and oriented.
[2021-02-05] MEDS: HYDROcodone/acetaminophen 10/325mg tab PO PRN (12:24)
--- NOTE | 2021-02-05 13:28 | NUR ---
Patient was starting dialysis when he suddenly started gripping the pillows on either side of him and appeared to be gazing in front of him. When trying to stimulate patient and get him to look at primary RN, continued staring forward and would not track with his eyes. Patient was apneic at this time and would not take a breath. Primary RN called for help and upon arrival of transmitter engineer in charge patient was still not responsive and continued staring ahead. Patient started to desaturate and oxygen was then turned up. Patient's body started to relax and then patient began to become more responsive and suddenly "came to" and asked "what's going on". Patient's vitals signs came back to normal range and patient was able to answer questions appropriately.
[2021-02-05] MEDS: ZINC/COPPER/MANGANESE/SELENIUM 1 ML, chromic chloride inj. 10 MCG in AA 5 %/CALCIUM/LYT... IV SCH (16:09)
--- NOTE | 2021-02-05 18:22 | NUR ---
Patient in room ICU 2037. I have received report from ABIMAEL Austin and had the opportunity to ask questions and assume patient care.
[2021-02-05] MEDS ORDERED: amiodarone 200mg tablet PO SCH (20:00)
[2021-02-05] MEDS: magnesium hydroxide 30ml (MOM) UD suspension CORPAK SCH (21:31)
[2021-02-05] MEDS: fat emulsion 20% inj. 100 ML IV SCH (21:32)
[2021-02-05] MEDS: insulin glargine (Lantus) pen - multi-dose SQ SCH (22:07)
--- NOTE | 2021-02-05 23:49 | NUR ---
Patient requested placment of bipap. no specific c/o. Addendum: 02/05/21 at 2350 by Ba Henao RT Amended: Links added.
[2021-02-06] VITALS (22 sets, daily range): BP systolic 90–165; BP diastolic 38–74
[2021-02-06] MEDS: heparin, porcine 5000 units/ml vial SQ SCH ×3 (00:32→16:23)
--- NOTE | 2021-02-06 01:25 | NUR ---
Patient switched to his home bipap at his request. Addendum: 02/06/21 at 0126 by Ba Henao RT Amended: Links added.
--- NOTE | 2021-02-06 01:37 | NUR ---
Problems reprioritized. Patient report given, questions answered & plan of care reviewed with Melany. Patient will be transferring to room 3009. Addendum: 02/06/21 at 0346 by Federica Antunez RN Wrong pt.
[2021-02-06] MEDS: HYDROcodone/acetaminophen 10/325mg tab PO PRN ×2 (02:49→20:44)
[2021-02-06] MEDS: albuterol 2.5 MG/3 ML nebule NEB SCH ×6 (03:42→23:24)
--- NOTE | 2021-02-06 05:30 | NUR ---
Patient was stable during my shift, no syncope was noted. Bpap was in used during the night until around 5am. Oxygen via n/c increase from 2L to 3L by RT. 02 sat was reading 89%-99% during the night. Suction mouth as needed. Repositioned patient for comfort. c/o of CT site pain, meds was given as ordered. Safety measures and comfort maintained. Call light within reach. Will continue to monitor.
--- NOTE | 2021-02-06 06:16 | NUR ---
Problems reprioritized. Patient report given, questions answered & plan of care reviewed with ABIMAEL Austin.
[2021-02-06 07:27] LABS: BASOPHILS % (AUTO) 0.2 % (0-1); EOSINOPHILS % (AUTO) 0.3 % (0-6); HEMATOCRIT 24.7 % (42.0-52.0); LYMPHOCYTES # (AUTO) 0.2 X10'3 (1.1-4.8); LYMPHOCYTES % (AUTO) 1.4 % (21-51); MEAN CORPUSCULAR HEMOGLOBIN 30.1 PG (27.0-31.0); MEAN CORPUSCULAR HGB CONC 32.5 g/dL (33.0-36.5); MEAN CORPUSCULAR VOLUME 92.6 FL (78-98); MEAN PLATELET VOLUME 8.6 FL (7.4-10.4); MONOCYTES # (AUTO) 0.9 X10'3 (0-0.9); MONOCYTES % (AUTO) 5.9 % (2-12); NEUTROPHILS # (AUTO) 13.9 X10'3 (1.8-7.7); NEUTROPHILS % (AUTO) 92.2 % (42-75); PLATELET COUNT 190 X10'3 (140-440); RED BLOOD COUNT 2.67 X10'6 (4.70-6.10); RED CELL DISTRIBUTION WIDTH 15.7 % (11.5-14.5); WHITE BLOOD COUNT 15.1 X10'3 (4.5-11.0)
[2021-02-06 07:50] LABS: HBSAG SCREEN Negative (Negative)
[2021-02-06] MEDS ORDERED: normal saline 1000ml 250 ML IV PRN (08:00)
[2021-02-06] MEDS ORDERED: heparin 1,000unit/ml 10ml vial 10 ML IV ONE (08:00)
[2021-02-06] MEDS ORDERED: heparin 1,000 units/ml 10ml inj HE ONE ×2 (08:00)
[2021-02-06] MEDS ORDERED: EPOETIN ALFA-EPBX 20,000 UNIT/ML 1 ML MDV IV ONE (08:00)
[2021-02-06] MEDS: K, MAG and/or Phos replacement - Verify level? MC SCH (08:00)
[2021-02-06 08:03] LABS: ALANINE AMINOTRANSFERASE 9 U/L (12-78); ALBUMIN 1.7 G/DL (3.4-5.0); ALBUMIN/GLOBULIN RATIO 0.4 (1.1-1.5); ANION GAP 13 (8-16); ASPARTATE AMINO TRANSFERASE 17 U/L (10-37); BILIRUBIN,TOTAL 0.4 MG/DL (0.1-1.0); BLOOD UREA NITROGEN 93 MG/DL (7-18); BUN/CREATININE RATIO 12.1 (5.4-32.0); CALCIUM 7.8 MG/DL (8.5-10.1); CHLORIDE 100 MMOL/L (99-107); CREATININE 7.69 MG/DL (0.60-1.10); GLUCOSE 211 MG/DL (70-104); PHOSPHORUS 5.7 MG/DL (2.3-4.5); POTASSIUM 4.2 MMOL/L (3.5-5.1); SODIUM 137 MMOL/L (135-145); TOTAL CARBON DIOXIDE 24.2 MMOL/L (24-32); TOTAL PROTEIN 5.7 G/DL (6.4-8.2); eGFR 7 ML/MIN
[2021-02-06 08:04] LABS: ALKALINE PHOSPHATASE 114 IU/L (46-116)
[2021-02-06] MEDS: lactobacillus rhamnosus 10,000 MMU CELLS/CAPSULE NG SCH ×2 (08:21→20:44)
[2021-02-06] MEDS: pantoprazole 40 MG vial IV SCH (08:21)
[2021-02-06] MEDS: docusate sodium 100mg/10ml UD cup CORPAK SCH ×2 (08:21→22:51)
[2021-02-06] MEDS: levoTHYROXINE sod inj. 100mcg/5 ml vial IV SCH (08:22)
[2021-02-06] MEDS: methylnaltrexone br 12mg/0.6ml inj***SubQ only SQ SCH (08:22)
[2021-02-06] MEDS: insulin regular, human U-100 3ml vial - multi-dose SQ SCH ×2 (08:31→15:22)
--- NOTE | 2021-02-06 11:16 | NUR ---
f/u 02/06: Pt remains on TPN at goal; continues to receive dialysis. Per RN, pt had another episode of being non-orientable, also not eating much, mostly refusing all meals on Puree diet. LBM 02/05. No changes to nutrition intervention at this time, will continue to monitor. Recommendations: 1. Given no EN access or PIV, continuous TPN per MD using 2:1 Clinimix-E 5/20 at 100 mL/hr with additional 100 mL 20% intralipids at 8.33 mL/hr for 12 hours/day to provide 2500 mL total volume/day, 2312 kcal, 120 g AA, 480 g dextrose (3.08 mg/kg/min dext load), and 20 g lipids 2. Monitor need to change to non-E formula given pt on dialysis; electrolytes currently WNL 3. Prealbumin q Friday/ 4. Daily scaled weights 5. Once EN access, continuous TF using Nepro 1.8 at 55 mL/hr goal providing 1320 mL total volume/day, 2376 kcal, 107 g protein, and 963 mL water 6. Once TF, additional free water per MD as pt on dialysis 7. Routine bowel care and opioid antagonist per MD Addendum: 02/06/21 at [address] Amended: Links added.
[2021-02-06] MEDS: ZINC/COPPER/MANGANESE/SELENIUM 1 ML, chromic chloride inj. 10 MCG in AA 5 %/CALCIUM/LYT... IV SCH (12:24)
--- NOTE | 2021-02-06 13:45 | NUR ---
Patient to IR for TDC placement via bed with x2 RN. Patient alert, oriented and in no apparent distress at time of departure.
[2021-02-06] MEDS ORDERED: fentaNYL/PF 50MCG/1 ML 2ML syringe ONE (14:01)
[2021-02-06] MEDS ORDERED: ondansetron/PF 4mg/2ml inj ONE (14:01)
[2021-02-06] MEDS ORDERED: LIDOcaine 1%/PF 5ML 10 MG/ML VIAL ONE (14:09)
[2021-02-06] MEDS ORDERED: heparin 1,000unit/ml 10ml vial 10 ML ONE (14:09)
--- NOTE | 2021-02-06 14:58 | NUR ---
Patient returned from IR post TDC placement. VSS. Patient alert and oriented. Dialysis nurse bedside to start treatment.
[2021-02-06] MEDS: magnesium hydroxide 30ml (MOM) UD suspension CORPAK SCH (20:44)
[2021-02-06] MEDS: fat emulsion 20% inj. 100 ML IV SCH (20:44)
[2021-02-06] MEDS: insulin glargine (Lantus) pen - multi-dose SQ SCH (22:28)
[2021-02-07] VITALS (21 sets, daily range): BP systolic 88–140; BP diastolic 42–78
[2021-02-07] MEDS: heparin, porcine 5000 units/ml vial SQ SCH ×3 (01:34→17:25)
[2021-02-07] MEDS: albuterol 2.5 MG/3 ML nebule NEB SCH ×6 (03:04→23:23)
--- NOTE | 2021-02-07 06:10 | NUR ---
Problems reprioritized. Patient report given, questions answered & plan of care reviewed with Valeriano VARGHESE .
[2021-02-07 08:04] LABS: BASOPHILS % (AUTO) 0.1 % (0-1); EOSINOPHILS % (AUTO) 0.3 % (0-6); HEMATOCRIT 25.3 % (42.0-52.0); HEMOGLOBIN 8.3 g/dl (14.0-17.9); LYMPHOCYTES # (AUTO) 0.2 X10'3 (1.1-4.8); LYMPHOCYTES % (AUTO) 1.7 % (21-51); MEAN CORPUSCULAR HEMOGLOBIN 30.4 PG (27.0-31.0); MEAN CORPUSCULAR HGB CONC 32.9 g/dL (33.0-36.5); MEAN CORPUSCULAR VOLUME 92.5 FL (78-98); MEAN PLATELET VOLUME 8.7 FL (7.4-10.4); MONOCYTES % (AUTO) 7.5 % (2-12); NEUTROPHILS # (AUTO) 11.9 X10'3 (1.8-7.7); NEUTROPHILS % (AUTO) 90.4 % (42-75); PLATELET COUNT 204 X10'3 (140-440); RED BLOOD COUNT 2.74 X10'6 (4.70-6.10); RED CELL DISTRIBUTION WIDTH 15.6 % (11.5-14.5); WHITE BLOOD COUNT 13.1 X10'3 (4.5-11.0)
[2021-02-07 08:24] LABS: ALANINE AMINOTRANSFERASE 10 U/L (12-78); ALBUMIN 1.7 G/DL (3.4-5.0); ALBUMIN/GLOBULIN RATIO 0.4 (1.1-1.5); ALKALINE PHOSPHATASE 119 IU/L (46-116); ANION GAP 7 (8-16); ASPARTATE AMINO TRANSFERASE 17 U/L (10-37); BILIRUBIN,TOTAL 0.4 MG/DL (0.1-1.0); BLOOD UREA NITROGEN 53 MG/DL (7-18); BUN/CREATININE RATIO 11.8 (5.4-32.0); CALCIUM 7.9 MG/DL (8.5-10.1); CHLORIDE 102 MMOL/L (99-107); CREATININE 4.51 MG/DL (0.60-1.10); GLUCOSE 240 MG/DL (70-104); PHOSPHORUS 4.6 MG/DL (2.3-4.5); POTASSIUM 4.8 MMOL/L (3.5-5.1); SODIUM 138 MMOL/L (135-145); TOTAL CARBON DIOXIDE 28.9 MMOL/L (24-32); TOTAL PROTEIN 5.8 G/DL (6.4-8.2); eGFR 13 ML/MIN
[2021-02-07] MEDS: ZINC/COPPER/MANGANESE/SELENIUM 1 ML, chromic chloride inj. 10 MCG in AA 5 %/CALCIUM/LYT... IV SCH (08:32)
[2021-02-07] MEDS: pantoprazole 40 MG vial IV SCH (08:33)
[2021-02-07] MEDS: docusate sodium 100mg/10ml UD cup CORPAK SCH ×2 (08:33→20:07)
[2021-02-07] MEDS: levoTHYROXINE sod inj. 100mcg/5 ml vial IV SCH (08:33)
[2021-02-07] MEDS: lactobacillus rhamnosus 10,000 MMU CELLS/CAPSULE NG SCH ×2 (08:34→20:00)
[2021-02-07] MEDS: insulin regular, human U-100 3ml vial - multi-dose SQ SCH ×3 (08:49→20:39)
[2021-02-07] MEDS: K, MAG and/or Phos replacement - Verify level? MC SCH (10:00)
[2021-02-07] MEDS ORDERED: normal saline 500ml IV soln 500 ML IV ONE (11:10)
[2021-02-07] MEDS: fat emulsion 20% inj. 100 ML IV SCH (20:07)
[2021-02-07] MEDS: insulin glargine (Lantus) pen - multi-dose SQ SCH (20:29)
[2021-02-07] MEDS: magnesium hydroxide 30ml (MOM) UD suspension CORPAK SCH (21:00)
[2021-02-08] VITALS (22 sets, daily range): BP systolic 81–140; BP diastolic 37–76
[2021-02-08] MEDS: heparin, porcine 5000 units/ml vial SQ SCH ×3 (00:12→16:03)
[2021-02-08 03:10] LABS: BASOPHILS % (AUTO) 0.2 % (0-1); EOSINOPHILS # (AUTO) 0.1 X10'3 (0-0.9); EOSINOPHILS % (AUTO) 0.5 % (0-6); HEMATOCRIT 22.6 % (42.0-52.0); HEMOGLOBIN 7.5 g/dl (14.0-17.9); LYMPHOCYTES # (AUTO) 0.4 X10'3 (1.1-4.8); MEAN CORPUSCULAR HEMOGLOBIN 30.6 PG (27.0-31.0); MEAN CORPUSCULAR VOLUME 92.7 FL (78-98); MEAN PLATELET VOLUME 8.3 FL (7.4-10.4); MONOCYTES # (AUTO) 1.4 X10'3 (0-0.9); MONOCYTES % (AUTO) 13.4 % (2-12); NEUTROPHILS # (AUTO) 8.3 X10'3 (1.8-7.7); NEUTROPHILS % (AUTO) 81.9 % (42-75); PLATELET COUNT 195 X10'3 (140-440); RED BLOOD COUNT 2.43 X10'6 (4.70-6.10); RED CELL DISTRIBUTION WIDTH 15.7 % (11.5-14.5); WHITE BLOOD COUNT 10.1 X10'3 (4.5-11.0)
[2021-02-08 03:29] LABS: ALANINE AMINOTRANSFERASE 9 U/L (12-78); ALBUMIN 1.6 G/DL (3.4-5.0); ALBUMIN/GLOBULIN RATIO 0.4 (1.1-1.5); ALKALINE PHOSPHATASE 119 IU/L (46-116); ANION GAP 7 (8-16); ASPARTATE AMINO TRANSFERASE 16 U/L (10-37); BILIRUBIN,TOTAL 0.3 MG/DL (0.1-1.0); BLOOD UREA NITROGEN 72 MG/DL (7-18); BUN/CREATININE RATIO 13.8 (5.4-32.0); CALCIUM 7.8 MG/DL (8.5-10.1); CHLORIDE 103 MMOL/L (99-107); CREATININE 5.23 MG/DL (0.60-1.10); GLUCOSE 109 MG/DL (70-104); MAGNESIUM 2.9 MG/DL (1.5-2.4); PHOSPHORUS 5.1 MG/DL (2.3-4.5); POTASSIUM 4.5 MMOL/L (3.5-5.1); PREALBUMIN 9.2 MG/DL (19-36); SODIUM 138 MMOL/L (135-145); TOTAL CARBON DIOXIDE 27.7 MMOL/L (24-32); TOTAL PROTEIN 5.5 G/DL (6.4-8.2); TRIGLYCERIDES 34 MG/DL (20-135); eGFR 11 ML/MIN
[2021-02-08] MEDS: albuterol 2.5 MG/3 ML nebule NEB SCH ×6 (03:29→23:30)
[2021-02-08] MEDS: ZINC/COPPER/MANGANESE/SELENIUM 1 ML, chromic chloride inj. 10 MCG in AA 5 %/CALCIUM/LYT... IV SCH (04:39)
[2021-02-08] MEDS: insulin regular, human U-100 3ml vial - multi-dose SQ SCH ×4 (04:58→21:32)
[2021-02-08] MEDS ORDERED: heparin 1,000unit/ml 10ml vial 10 ML IV ONE (08:00)
[2021-02-08] MEDS ORDERED: EPOETIN ALFA-EPBX 20,000 UNIT/ML 1 ML MDV IV ONE (08:00)
[2021-02-08] MEDS ORDERED: normal saline 1000ml 250 ML IV PRN (08:00)
[2021-02-08] MEDS: K, MAG and/or Phos replacement - Verify level? MC SCH (08:00)
[2021-02-08] MEDS: levoTHYROXINE sod inj. 100mcg/5 ml vial IV SCH (10:02)
[2021-02-08] MEDS: methylnaltrexone br 12mg/0.6ml inj***SubQ only SQ SCH (10:03)
[2021-02-08] MEDS: pantoprazole 40 MG vial IV SCH (10:12)
[2021-02-08] MEDS: docusate sodium 100mg/10ml UD cup CORPAK SCH ×2 (16:00→20:00)
[2021-02-08] MEDS: lactobacillus rhamnosus 10,000 MMU CELLS/CAPSULE NG SCH ×2 (16:00→21:36)
[2021-02-08] MEDS ORDERED: heparin 1,000 units/ml 10ml inj HE ONE ×2 (20:06)
[2021-02-08] MEDS: magnesium hydroxide 30ml (MOM) UD suspension CORPAK SCH (21:06)
[2021-02-08] MEDS: diatr meglu/diatrizoate 30ml oral sol.-(3 dose) bottle NG ONE ×2 (21:07→22:00)
[2021-02-08] MEDS: fat emulsion 20% inj. 100 ML IV SCH (21:08)
[2021-02-08] MEDS: insulin glargine (Lantus) pen - multi-dose SQ SCH (21:29)
[2021-02-09] VITALS (24 sets, daily range): BP systolic 88–178; BP diastolic 43–95
[2021-02-09] MEDS: Melatonin 3mg tablet PO SCH ×2 (00:36→21:04)
[2021-02-09] MEDS: ZINC/COPPER/MANGANESE/SELENIUM 1 ML, chromic chloride inj. 10 MCG in AA 5 %/CALCIUM/LYT... IV SCH ×2 (01:00→21:04)
[2021-02-09] MEDS: dextrose 50%-water 50ml dispensing syringe IV PRN (01:17)
[2021-02-09] MEDS ORDERED: tPA-cathflo 2 MG/2 ml IV flush IVF ONE (02:15)
[2021-02-09 03:06] LABS: BASOPHILS % (AUTO) 0.3 % (0-1); EOSINOPHILS # (AUTO) 0.1 X10'3 (0-0.9); EOSINOPHILS % (AUTO) 0.8 % (0-6); LYMPHOCYTES # (AUTO) 0.3 X10'3 (1.1-4.8); LYMPHOCYTES % (AUTO) 3.2 % (21-51); MEAN CORPUSCULAR HEMOGLOBIN 30.4 PG (27.0-31.0); MEAN CORPUSCULAR HGB CONC 33.3 g/dL (33.0-36.5); MEAN CORPUSCULAR VOLUME 91.5 FL (78-98); MEAN PLATELET VOLUME 8.6 FL (7.4-10.4); MONOCYTES # (AUTO) 1.1 X10'3 (0-0.9); MONOCYTES % (AUTO) 13.7 % (2-12); NEUTROPHILS # (AUTO) 6.8 X10'3 (1.8-7.7); PLATELET COUNT 218 X10'3 (140-440); RED BLOOD COUNT 2.23 X10'6 (4.70-6.10); RED CELL DISTRIBUTION WIDTH 15.8 % (11.5-14.5); WHITE BLOOD COUNT 8.3 X10'3 (4.5-11.0)
[2021-02-09] MEDS: albuterol 2.5 MG/3 ML nebule NEB SCH ×6 (03:12→23:21)
[2021-02-09 03:16] LABS: ALANINE AMINOTRANSFERASE 22 U/L (12-78); ALBUMIN 1.5 G/DL (3.4-5.0); ALBUMIN/GLOBULIN RATIO 0.4 (1.1-1.5); ALKALINE PHOSPHATASE 132 IU/L (46-116); ANION GAP 5 (8-16); ASPARTATE AMINO TRANSFERASE 52 U/L (10-37); BILIRUBIN,TOTAL 0.3 MG/DL (0.1-1.0); BLOOD UREA NITROGEN 38 MG/DL (7-18); BUN/CREATININE RATIO 12.7 (5.4-32.0); CALCIUM 7.6 MG/DL (8.5-10.1); CHLORIDE 104 MMOL/L (99-107); GLUCOSE 134 MG/DL (70-104); HEMOGLOBIN 6.8 g/dl (14.0-17.9); POTASSIUM 4.1 MMOL/L (3.5-5.1); SODIUM 139 MMOL/L (135-145); TOTAL CARBON DIOXIDE 30.4 MMOL/L (24-32); TOTAL PROTEIN 5.3 G/DL (6.4-8.2); eGFR 21 ML/MIN
[2021-02-09 03:17] LABS: HEMATOCRIT 20.4 % (42.0-52.0)
[2021-02-09] MEDS: insulin regular, human U-100 3ml vial - multi-dose SQ SCH ×4 (04:43→20:21)
[2021-02-09 04:52] LABS: PLATELET ESTIMATE NORMAL; TOTAL CELLS COUNTED 100
[2021-02-09 04:58] LABS: UREA NITROGEN 24HR,URINE 1.7 GM/24HR (7-20)
--- NOTE | 2021-02-09 06:30 | NUR ---
Patient in room ICU 2037. I have received report from Sarah VARGHESE and had the opportunity to ask questions and assume patient care.
[2021-02-09] MEDS ORDERED: heparin 1,000unit/ml 10ml vial 10 ML IV ONE (08:00)
[2021-02-09] MEDS: heparin, porcine 5000 units/ml vial SQ SCH ×3 (08:00→15:55)
[2021-02-09] MEDS ORDERED: normal saline 1000ml 250 ML IV PRN (08:00)
[2021-02-09] MEDS: docusate sodium 100mg/10ml UD cup CORPAK SCH ×2 (08:00→19:47)
[2021-02-09] MEDS ORDERED: EPOETIN ALFA-EPBX 20,000 UNIT/ML 1 ML MDV IV ONE (08:00)
[2021-02-09] MEDS: K, MAG and/or Phos replacement - Verify level? MC SCH (08:00)
[2021-02-09] MEDS: levoTHYROXINE sod inj. 100mcg/5 ml vial IV SCH (08:17)
[2021-02-09] MEDS: pantoprazole 40 MG vial IV SCH (08:17)
[2021-02-09] MEDS: lactobacillus rhamnosus 10,000 MMU CELLS/CAPSULE NG SCH ×2 (08:19→19:48)
[2021-02-09] MEDS: HYDROcodone/acetaminophen 10/325mg tab PO PRN ×3 (08:48→19:49)
[2021-02-09] MEDS: MVI, adult No.4 with vit. K 10 ML in dextrose 5% water 500ml 500 ML IV SCH ×2 (09:23)
--- NOTE | 2021-02-09 12:19 | NUR ---
MD & Spouse Dr. Arce here for rounds. NG placement attempted without success x 2 RNs. PT c/o back pain. [place] x 2 did relieve pain to a 4. PT to work with pt about 11:45. at beside for PT. Tolerated PT well. CT wound at Rt oozing lg amts of serious fluid. Dressing a linen changed after PT. PT sleeping with mouth breathing.
--- NOTE | 2021-02-09 14:16 | NUR ---
Reassessment: Pt s/p TDC placement and continues on dialysis. Pt continues eating poorly on pureed diet with honey thick liquids per ST recs, documented to be mostly refusing meals with the exception of 25% PO intake of starch since 02/08. Per RN pt dislikes the pureed food. Pt continues receiving TPN for nutrition. Per elementary education tutor multiple attempts for NG tube placement today were unsuccessful. Recommend continuing with TPN for nutrition given patient's poor PO intake of meals, though EN would be optimal given functional gut if NG tube able to be placed, TF recommendations below. LBM 02/05, with active bowel sounds per RN. Pt receiving routine bowel care and Relistor. Will continue to follow closely. Recommendations: 1) Continue pureed food with honey thick liquids per ST recs; encourage PO intake 2) Given no EN access, continuous TPN per MD using 2:1 Clinimix-E 5/20 at 100 mL/hr with additional 100 mL 20% intralipids at 8.33 mL/hr for 12 hours/day to provide 2500 mL total volume/day, 2312 kcal, 120 g AA, 480 g dextrose (3.08 mg/kg/min dext load), and 20 g lipids 3) Monitor need to change to non-E formula given pt on dialysis; electrolytes currently WNL 4) Prealbumin and TG q Friday/ 5) Daily scaled weights 6) Once EN access, continuous TF using Nepro 1.8 at 55 mL/hr goal to provide 1320 mL total volume/day, 2376 kcal, 107 g protein, and 963 mL water 7) Once TF, additional free water per MD as pt on dialysis 8) Continue nutrition support until pt able to consistently tolerate average PO intake greater than 65% of meals 9) Routine bowel care and opioid antagonist per MD Addendum: 02/09/21 at [address] Amended: Links added.
--- NOTE | 2021-02-09 18:23 | NUR ---
Problems reprioritized. Patient report given, questions answered & plan of care reviewed with Leann VARGHESE.
[2021-02-09] MEDS ORDERED: fat emulsion IV bag 250 ML IV SCH (20:00)
[2021-02-09] MEDS: insulin glargine (Lantus) pen - multi-dose SQ SCH (20:24)
[2021-02-09] MEDS: magnesium hydroxide 30ml (MOM) UD suspension CORPAK SCH (21:00)
[2021-02-10] VITALS (24 sets, daily range): BP systolic 91–171; BP diastolic 34–77
[2021-02-10] MEDS: HYDROcodone/acetaminophen 10/325mg tab PO PRN ×3 (00:29→09:39)
[2021-02-10] MEDS: insulin regular, human U-100 3ml vial - multi-dose SQ SCH ×4 (02:24→21:35)
[2021-02-10 03:05] LABS: PARTIAL THROMBOPLASTIN TIME 39 SECONDS (22-32)
[2021-02-10 03:09] LABS: ALANINE AMINOTRANSFERASE 24 U/L (12-78); ALBUMIN 1.7 G/DL (3.4-5.0); ALBUMIN/GLOBULIN RATIO 0.4 (1.1-1.5); ALKALINE PHOSPHATASE 145 IU/L (46-116); ANION GAP 8 (8-16); ASPARTATE AMINO TRANSFERASE 34 U/L (10-37); BILIRUBIN,TOTAL 0.4 MG/DL (0.1-1.0); BLOOD UREA NITROGEN 63 MG/DL (7-18); BUN/CREATININE RATIO 15.6 (5.4-32.0); CHLORIDE 102 MMOL/L (99-107); CREATININE 4.05 MG/DL (0.60-1.10); GLUCOSE 132 MG/DL (70-104); POTASSIUM 5.1 MMOL/L (3.5-5.1); SODIUM 137 MMOL/L (135-145); eGFR 15 ML/MIN
[2021-02-10 03:17] LABS: BASOPHILS % (AUTO) 0.5 % (0-1); EOSINOPHILS # (AUTO) 0.1 X10'3 (0-0.9); EOSINOPHILS % (AUTO) 1.1 % (0-6); HEMOGLOBIN 7.3 g/dl (14.0-17.9); LYMPHOCYTES # (AUTO) 0.4 X10'3 (1.1-4.8); LYMPHOCYTES % (AUTO) 4.3 % (21-51); MEAN CORPUSCULAR HGB CONC 33.5 g/dL (33.0-36.5); MEAN CORPUSCULAR VOLUME 92.6 FL (78-98); MEAN PLATELET VOLUME 8.5 FL (7.4-10.4); MONOCYTES # (AUTO) 1.2 X10'3 (0-0.9); MONOCYTES % (AUTO) 13.5 % (2-12); NEUTROPHILS # (AUTO) 7.4 X10'3 (1.8-7.7); NEUTROPHILS % (AUTO) 80.6 % (42-75); PLATELET COUNT 262 X10'3 (140-440); RED BLOOD COUNT 2.34 X10'6 (4.70-6.10); RED CELL DISTRIBUTION WIDTH 15.9 % (11.5-14.5); WHITE BLOOD COUNT 9.2 X10'3 (4.5-11.0)
[2021-02-10 03:35] LABS: HEMATOCRIT 21.7 % (42.0-52.0)
[2021-02-10] MEDS: albuterol 2.5 MG/3 ML nebule NEB SCH ×5 (03:45→20:05)
[2021-02-10] MEDS ORDERED: normal saline 1000ml 100 ML IV PRN (06:10)
[2021-02-10] MEDS ORDERED: normal saline 1000ml 250 ML IV PRN (06:10)
[2021-02-10] MEDS ORDERED: EPOETIN ALFA-EPBX 20,000 UNIT/ML 1 ML MDV IV ONE (06:10)
[2021-02-10] MEDS ORDERED: heparin 1,000 units/ml 10ml inj HE ONE ×2 (06:15)
--- NOTE | 2021-02-10 06:30 | NUR ---
Patient in room ICU 2037. I have received report from Marbella VARGHESE and had the opportunity to ask questions and assume patient care. Also have student Adriana today.
[2021-02-10] MEDS ORDERED: LIDOcaine Viscous 15ml cup ONE (07:48)
[2021-02-10] MEDS ORDERED: MIDAZolam 1 MG/ML 5ML VIAL ONE (07:48)
[2021-02-10] MEDS ORDERED: fentaNYL/PF 50MCG/1 ML 2ML syringe ONE (07:48)
[2021-02-10] MEDS: levoTHYROXINE sod inj. 100mcg/5 ml vial IV SCH (07:57)
[2021-02-10] MEDS: pantoprazole 40 MG vial IV SCH (07:57)
[2021-02-10] MEDS: methylnaltrexone br 12mg/0.6ml inj***SubQ only SQ SCH (07:57)
[2021-02-10] MEDS: K, MAG and/or Phos replacement - Verify level? MC SCH (08:00)
--- NOTE | 2021-02-10 08:51 | NUR ---
PEG Dr. Morris here so insert a PEG for this pt. Procedure discussed with pt. Student watching, GI Team here to do perform procedure. Prior, RT added high flow O2 as well as CPAP, which will have to be removed for PEG. Sats mid to high 90s with combination. VS set to q5 min.
[2021-02-10] MEDS ORDERED: ceFAZolin/D5W- 1GM premix 50 ML IV ONE (09:10)
[2021-02-10] MEDS: lactobacillus rhamnosus 10,000 MMU CELLS/CAPSULE NG SCH ×2 (09:37→21:02)
[2021-02-10] MEDS: docusate sodium 100mg/10ml UD cup CORPAK SCH ×2 (09:40→20:00)
--- NOTE | 2021-02-10 11:59 | NUR ---
TF consult: Pt s/p G-tube placement. Per RNMD states okay to use G-tube tomorrow 02/11. Will place TF recommendations in EMR. Water flushes per MD given pt on dialysis. Recommend continuing with TPN until TF able to be initiated and ensure TF tolerance. Will continue to follow closely. Recommendations: 1) Continuous TF via G-tube using Nepro 1.8 with goal rate of 60 mL/hr to provide 1440 mL total volume/day, 2592 kcal, 117 g protein, and 1047 mL water 2) Additional water per MD given pt on dialysis 3) Prealbumin q Friday/ 4) Daily scaled weights 5) PO diet advancement as medically indicated per ST 6) Wean TPN with initiation of TF to ensure TF tolerance 7) Routine bowel care and opioid antagonist per MD Addendum: 02/10/21 at [address] Amended: Links added.
[2021-02-10] MEDS: clotrimazole 10mg troche MM SCH ×3 (14:58→22:00)
--- NOTE | 2021-02-10 16:58 | NUR ---
Visitors SO & sister arrived to visit pt. Questions answered. Warm blankets provided to pt. Remains on NC at 6 L. Appropriate with family.
[2021-02-10] MEDS: ZINC/COPPER/MANGANESE/SELENIUM 1 ML, chromic chloride inj. 10 MCG in AA 5 %/CALCIUM/LYT... IV SCH (17:27)
[2021-02-10] MEDS: magnesium hydroxide 30ml (MOM) UD suspension CORPAK SCH (21:00)
[2021-02-10] MEDS: fat emulsion IV bag 250 ML IV SCH (21:01)
[2021-02-10] MEDS: ciprofloxacin 250mg tablet PEG SCH ×2 (21:01→22:00)
[2021-02-10] MEDS: Melatonin 3mg tablet PO SCH (21:02)
[2021-02-10] MEDS: insulin glargine (Lantus) pen - multi-dose SQ SCH (21:36)
[2021-02-11] VITALS (18 sets, daily range): BP systolic 101–125; BP diastolic 40–55
[2021-02-11] MEDS: albuterol 2.5 MG/3 ML nebule NEB SCH ×7 (00:01→23:12)
[2021-02-11] MEDS: insulin regular, human U-100 3ml vial - multi-dose SQ SCH ×4 (03:22→21:15)
--- NOTE | 2021-02-11 06:30 | NUR ---
Patient in room ICU 2037. I have received report from ABIMAEL Cardenas and had the opportunity to ask questions and assume patient care.
[2021-02-11] MEDS: pantoprazole 40 MG vial IV SCH (07:09)
[2021-02-11] MEDS: docusate sodium 100mg/10ml UD cup CORPAK SCH ×2 (07:09→20:00)
[2021-02-11] MEDS: lactobacillus rhamnosus 10,000 MMU CELLS/CAPSULE NG SCH ×2 (07:10→20:44)
[2021-02-11] MEDS: levoTHYROXINE sod inj. 100mcg/5 ml vial IV SCH (07:10)
[2021-02-11] MEDS: clotrimazole 10mg troche MM SCH ×5 (07:10→22:33)
[2021-02-11 07:50] LABS: BASOPHILS % (AUTO) 0.2 % (0-1); EOSINOPHILS # (AUTO) 0.1 X10'3 (0-0.9); EOSINOPHILS % (AUTO) 0.7 % (0-6); LYMPHOCYTES # (AUTO) 0.4 X10'3 (1.1-4.8); LYMPHOCYTES % (AUTO) 4.3 % (21-51); MEAN CORPUSCULAR HEMOGLOBIN 30.7 PG (27.0-31.0); MEAN CORPUSCULAR VOLUME 93.1 FL (78-98); MEAN PLATELET VOLUME 8.1 FL (7.4-10.4); MONOCYTES # (AUTO) 1.4 X10'3 (0-0.9); MONOCYTES % (AUTO) 15.3 % (2-12); NEUTROPHILS # (AUTO) 7.4 X10'3 (1.8-7.7); NEUTROPHILS % (AUTO) 79.5 % (42-75); PLATELET COUNT 232 X10'3 (140-440); RED CELL DISTRIBUTION WIDTH 16.1 % (11.5-14.5); WHITE BLOOD COUNT 9.4 X10'3 (4.5-11.0)
[2021-02-11 07:54] LABS: HEMATOCRIT 20.4 % (42.0-52.0); HEMOGLOBIN 6.7 g/dl (14.0-17.9)
[2021-02-11 07:55] LABS: ALANINE AMINOTRANSFERASE 22 U/L (12-78); ALBUMIN 1.5 G/DL (3.4-5.0); ALBUMIN/GLOBULIN RATIO 0.4 (1.1-1.5); ALKALINE PHOSPHATASE 164 IU/L (46-116); ANION GAP 4 (8-16); ASPARTATE AMINO TRANSFERASE 26 U/L (10-37); BILIRUBIN,TOTAL 0.4 MG/DL (0.1-1.0); BLOOD UREA NITROGEN 50 MG/DL (7-18); BUN/CREATININE RATIO 15.7 (5.4-32.0); CALCIUM 7.9 MG/DL (8.5-10.1); CHLORIDE 102 MMOL/L (99-107); CREATININE 3.18 MG/DL (0.60-1.10); GLUCOSE 172 MG/DL (70-104); POTASSIUM 4.6 MMOL/L (3.5-5.1); SODIUM 136 MMOL/L (135-145); TOTAL CARBON DIOXIDE 29.7 MMOL/L (24-32); TOTAL PROTEIN 5.7 G/DL (6.4-8.2); eGFR 19 ML/MIN
[2021-02-11] MEDS: K, MAG and/or Phos replacement - Verify level? MC SCH (08:00)
[2021-02-11 09:22] LABS: HYPOCHROMASIA 1+; PLATELET ESTIMATE NORMAL; POLYCHROMASIA FEW; TOTAL CELLS COUNTED 100
[2021-02-11] MEDS: ciprofloxacin 250mg tablet PEG SCH ×2 (10:10→22:33)
[2021-02-11] MEDS: ZINC/COPPER/MANGANESE/SELENIUM 1 ML, chromic chloride inj. 10 MCG in AA 5 %/CALCIUM/LYT... IV SCH (12:30)
[2021-02-11 12:37] LABS: MAGNESIUM 2.5 MG/DL (1.5-2.4)
--- NOTE | 2021-02-11 16:00 | NUR ---
Patient transferred to PCU to room 3011 via bed with x3 staff. Patient alert, oriented and in no apparent distress at time of transfer. All patient belongings sent to PCU including patient specific medications and patient chart. Patient was placed on Tele monitor prior to transport. Patient was transferred to PCU bed via slide board with x4 staff. All lines and dressings remain intact. Report was given to ABIMAEL Estrada prior to transport.
--- NOTE | 2021-02-11 18:13 | NUR ---
Problems reprioritized. Patient report given, questions answered & plan of care reviewed with Alvin VARGHESE.
[2021-02-11] MEDS: fat emulsion IV bag 250 ML IV SCH (20:43)
[2021-02-11] MEDS: Melatonin 3mg tablet PO SCH (20:55)
[2021-02-11] MEDS: insulin glargine (Lantus) pen - multi-dose SQ SCH (21:21)
[2021-02-12] VITALS (10 sets, daily range): BP systolic 90–127; BP diastolic 45–74
[2021-02-12] MEDS: HYDROcodone/acetaminophen 10/325mg tab PO PRN (01:29)
[2021-02-12] MEDS: insulin regular, human U-100 3ml vial - multi-dose SQ SCH ×3 (02:58→20:24)
[2021-02-12] MEDS: albuterol 2.5 MG/3 ML nebule NEB SCH ×6 (03:20→23:12)
[2021-02-12] MEDS: clotrimazole 10mg troche MM SCH ×5 (05:59→21:11)
--- NOTE | 2021-02-12 06:14 | NUR ---
Problems reprioritized. Patient report given, questions answered & plan of care reviewed with EPI. Addendum: 02/12/21 at 0614 by Gilberto Pegureo RN Amended: Links added.
[2021-02-12 06:53] LABS: BASOPHILS % (AUTO) 0.2 % (0-1); EOSINOPHILS # (AUTO) 0.1 X10'3 (0-0.9); EOSINOPHILS % (AUTO) 0.6 % (0-6); LYMPHOCYTES # (AUTO) 0.4 X10'3 (1.1-4.8); LYMPHOCYTES % (AUTO) 3.8 % (21-51); MEAN CORPUSCULAR HEMOGLOBIN 30.8 PG (27.0-31.0); MEAN CORPUSCULAR HGB CONC 33.1 g/dL (33.0-36.5); MEAN CORPUSCULAR VOLUME 93.1 FL (78-98); MEAN PLATELET VOLUME 7.9 FL (7.4-10.4); MONOCYTES % (AUTO) 10.9 % (2-12); NEUTROPHILS % (AUTO) 84.5 % (42-75); PLATELET COUNT 195 X10'3 (140-440); RED BLOOD COUNT 2.03 X10'6 (4.70-6.10); RED CELL DISTRIBUTION WIDTH 16.4 % (11.5-14.5); WHITE BLOOD COUNT 9.4 X10'3 (4.5-11.0)
[2021-02-12 07:14] LABS: HEMATOCRIT 18.9 % (42.0-52.0); HEMOGLOBIN 6.2 g/dl (14.0-17.9)
[2021-02-12 07:21] LABS: ALANINE AMINOTRANSFERASE 25 U/L (12-78); ALBUMIN 1.5 G/DL (3.4-5.0); ALBUMIN/GLOBULIN RATIO 0.3 (1.1-1.5); ALKALINE PHOSPHATASE 204 IU/L (46-116); ANION GAP 9 (8-16); ASPARTATE AMINO TRANSFERASE 33 U/L (10-37); BILIRUBIN,TOTAL 0.3 MG/DL (0.1-1.0); BLOOD UREA NITROGEN 76 MG/DL (7-18); BUN/CREATININE RATIO 18.1 (5.4-32.0); CALCIUM 7.9 MG/DL (8.5-10.1); CHLORIDE 100 MMOL/L (99-107); CREATININE 4.19 MG/DL (0.60-1.10); GLUCOSE 172 MG/DL (70-104); MAGNESIUM 2.8 MG/DL (1.5-2.4); PHOSPHORUS 5.5 MG/DL (2.3-4.5); POTASSIUM 5.1 MMOL/L (3.5-5.1); PREALBUMIN 11.8 MG/DL (19-36); SODIUM 136 MMOL/L (135-145); TOTAL CARBON DIOXIDE 27.4 MMOL/L (24-32); TOTAL PROTEIN 5.9 G/DL (6.4-8.2); TRIGLYCERIDES 32 MG/DL (20-135); eGFR 14 ML/MIN
--- NOTE | 2021-02-12 07:21 | NUR ---
Pt Lucio Morgant 3011 has critical H/H of 6.2/18.9 this morning. I got in report that [place] yesterday wanted wait to infuse until during HD today, please advise. Natalie [id number]
--- NOTE | 2021-02-12 07:21 | NUR ---
Patient in room PCU 3011. I have received report from Alvin VARGHESE and had the opportunity to ask questions and assume patient care.
[2021-02-12] MEDS: docusate sodium 100mg/10ml UD cup CORPAK SCH ×3 (08:00→21:11)
[2021-02-12 08:26] LABS: TOTAL CELLS COUNTED 100
[2021-02-12 08:27] LABS: ANISOCYTOSIS 1+; PLATELET ESTIMATE NORMAL; POLYCHROMASIA FEW
[2021-02-12] MEDS: ciprofloxacin 250mg tablet PEG SCH ×2 (09:14→21:11)
[2021-02-12] MEDS: lactobacillus rhamnosus 10,000 MMU CELLS/CAPSULE NG SCH ×2 (09:15→21:11)
[2021-02-12] MEDS: levoTHYROXINE sod inj. 100mcg/5 ml vial IV SCH (09:20)
[2021-02-12] MEDS: MVI, adult No.4 with vit. K 10 ML in dextrose 5% water 500ml 500 ML IV SCH ×4 (09:20→17:18)
[2021-02-12] MEDS: ZINC/COPPER/MANGANESE/SELENIUM 1 ML, chromic chloride inj. 10 MCG in AA 5 %/CALCIUM/LYT... IV SCH (09:27)
[2021-02-12] MEDS ORDERED: EPOETIN ALFA-EPBX 20,000 UNIT/ML 1 ML MDV IV ONE ×2 (12:00→12:20)
[2021-02-12] MEDS ORDERED: normal saline 1000ml 250 ML IV PRN ×2 (12:00→12:20)
[2021-02-12] MEDS ORDERED: heparin 1,000 units/ml 10ml inj HE ONE ×4 (12:05→12:25)
[2021-02-12] MEDS ORDERED: heparin 1,000unit/ml 10ml vial 10 ML IV ONE (12:20)
--- NOTE | 2021-02-12 18:49 | NUR ---
Problems reprioritized. Patient report given, questions answered & plan of care reviewed with Monae VARGHESE.
[2021-02-12 20:15] LABS: BASOPHILS % (AUTO) 0.5 % (0-1); EOSINOPHILS # (AUTO) 0.1 X10'3 (0-0.9); EOSINOPHILS % (AUTO) 0.7 % (0-6); HEMATOCRIT 23.7 % (42.0-52.0); LYMPHOCYTES # (AUTO) 0.4 X10'3 (1.1-4.8); LYMPHOCYTES % (AUTO) 4.3 % (21-51); MEAN CORPUSCULAR HEMOGLOBIN 30.7 PG (27.0-31.0); MEAN CORPUSCULAR HGB CONC 33.6 g/dL (33.0-36.5); MEAN CORPUSCULAR VOLUME 91.4 FL (78-98); MEAN PLATELET VOLUME 7.8 FL (7.4-10.4); MONOCYTES % (AUTO) 11.5 % (2-12); NEUTROPHILS # (AUTO) 7.4 X10'3 (1.8-7.7); PLATELET COUNT 201 X10'3 (140-440); RED BLOOD COUNT 2.59 X10'6 (4.70-6.10); RED CELL DISTRIBUTION WIDTH 15.8 % (11.5-14.5); WHITE BLOOD COUNT 8.9 X10'3 (4.5-11.0)
[2021-02-12] MEDS: insulin glargine (Lantus) pen - multi-dose SQ SCH (20:25)
[2021-02-12] MEDS: Melatonin 3mg tablet PO SCH (21:11)
[2021-02-13 02:00] VITALS: BP 128/48
[2021-02-13] MEDS: insulin regular, human U-100 3ml vial - multi-dose SQ SCH ×2 (02:05→16:02)
[2021-02-13] MEDS: albuterol 2.5 MG/3 ML nebule NEB SCH ×6 (02:27→23:00)
[2021-02-13 04:57] LABS: HEMOGLOBIN 8.4 g/dl (14.0-17.9); MEAN PLATELET VOLUME 7.5 FL (7.4-10.4); RED BLOOD COUNT 2.69 X10'6 (4.70-6.10)
[2021-02-13 04:59] LABS: BASOPHILS % (AUTO) 0.4 % (0-1); EOSINOPHILS # (AUTO) 0.1 X10'3 (0-0.9); EOSINOPHILS % (AUTO) 0.7 % (0-6); HEMATOCRIT 24.5 % (42.0-52.0); LYMPHOCYTES # (AUTO) 0.4 X10'3 (1.1-4.8); LYMPHOCYTES % (AUTO) 4.9 % (21-51); MEAN CORPUSCULAR HEMOGLOBIN 31.3 PG (27.0-31.0); MEAN CORPUSCULAR HGB CONC 34.4 g/dL (33.0-36.5); MEAN CORPUSCULAR VOLUME 90.9 FL (78-98); MONOCYTES % (AUTO) 11.9 % (2-12); NEUTROPHILS # (AUTO) 7.1 X10'3 (1.8-7.7); NEUTROPHILS % (AUTO) 82.1 % (42-75); PLATELET COUNT 215 X10'3 (140-440); RED CELL DISTRIBUTION WIDTH 16.1 % (11.5-14.5); WHITE BLOOD COUNT 8.7 X10'3 (4.5-11.0)
[2021-02-13] MEDS: clotrimazole 10mg troche MM SCH ×5 (05:09→22:13)
[2021-02-13 05:10] LABS: ALANINE AMINOTRANSFERASE 58 U/L (12-78); ALBUMIN 1.6 G/DL (3.4-5.0); ALBUMIN/GLOBULIN RATIO 0.3 (1.1-1.5); ALKALINE PHOSPHATASE 329 IU/L (46-116); ANION GAP 7 (8-16); ASPARTATE AMINO TRANSFERASE 94 U/L (10-37); BILIRUBIN,TOTAL 0.4 MG/DL (0.1-1.0); BLOOD UREA NITROGEN 48 MG/DL (7-18); BUN/CREATININE RATIO 15.5 (5.4-32.0); CHLORIDE 101 MMOL/L (99-107); CREATININE 3.09 MG/DL (0.60-1.10); GLUCOSE 148 MG/DL (70-104); PHOSPHORUS 3.9 MG/DL (2.3-4.5); POTASSIUM 4.6 MMOL/L (3.5-5.1); SODIUM 137 MMOL/L (135-145); TOTAL CARBON DIOXIDE 28.9 MMOL/L (24-32); TOTAL PROTEIN 6.3 G/DL (6.4-8.2); eGFR 20 ML/MIN
[2021-02-13] MEDS: ZINC/COPPER/MANGANESE/SELENIUM 1 ML, chromic chloride inj. 10 MCG in AA 5 %/CALCIUM/LYT... IV SCH (05:30)
--- NOTE | 2021-02-13 06:19 | NUR ---
Problems reprioritized. Patient report given, questions answered & plan of care reviewed with ABIMAEL Estrada.
--- NOTE | 2021-02-13 06:57 | NUR ---
Patient in room PCU 3011. I have received report from ABIMAEL Estrada and had the opportunity to ask questions and assume patient care.
[2021-02-13 07:00] VITALS: BP 136/49
--- NOTE | 2021-02-13 07:15 | NUR ---
Patient in room PCU 3011. I have received report from JERMAINE VARGHESE and had the opportunity to ask questions and assume patient care.
[2021-02-13] MEDS: docusate sodium 100mg/10ml UD cup CORPAK SCH ×2 (08:05→20:00)
[2021-02-13] MEDS: lactobacillus rhamnosus 10,000 MMU CELLS/CAPSULE NG SCH ×2 (08:05→20:48)
[2021-02-13 11:00] VITALS: BP 123/45
--- NOTE | 2021-02-13 11:54 | NUR ---
Problems reprioritized. Patient report given, questions answered & plan of care reviewed with ABIMAEL Estrada.
--- NOTE | 2021-02-13 11:55 | NUR ---
Reassessment: Pt on BiPAP, currently receiving TF at goal of Nepro 1.8 at 60ml/hr, TPN has been d/c. Pt remains on dialysis, last treatment 02/12 w/ 1L out. LBM 02/05 receiving routine colace, d/w RN and MD garcia w/ additional bowel care for pt. No changes to nutrition recommendations at this time, will continue to monitor. Recommendations: 1) Continuous TF via G-tube using Nepro 1.8 with goal rate of 60 mL/hr to provide 1440 mL total volume/day, 2592 kcal, 117 g protein, and 1047 mL water 2) Additional water per MD given pt on dialysis 3) Prealbumin q Friday/ 4) Daily scaled weights Addendum: 02/13/21 at [address] Amended: Links added.
--- NOTE | 2021-02-13 13:13 | NUR ---
Student documentation: I have reviewed and agree with all interventions, assessments performed and documented by Elina, nursing administrator.
--- NOTE | 2021-02-13 13:13 | NUR ---
Student Medication Administration: For this medication-pass time frame, all medication were reviewed, dispensed, administered and documented per hospital policy by Elina nursing associate.
[2021-02-13] MEDS ORDERED: bisacodyl 10mg suppository rectal RC STA (13:35)
[2021-02-13 15:00] VITALS: BP 148/68
[2021-02-13] MEDS: ciprofloxacin 250mg tablet PEG SCH ×2 (16:21→22:14)
[2021-02-13] MEDS: levoTHYROXINE sod inj. 100mcg/5 ml vial IV SCH (16:21)
--- NOTE | 2021-02-13 17:17 | NUR ---
Administered suppository to patient, pt tolerated well.
[2021-02-13 18:00] VITALS: BP 119/50
[2021-02-13] MEDS: dextrose 50%-water 50ml dispensing syringe IV PRN (20:37)
[2021-02-13] MEDS: HYDROcodone/acetaminophen 10/325mg tab PO PRN (20:48)
[2021-02-13] MEDS: insulin glargine (Lantus) pen - multi-dose SQ SCH (21:00)
--- NOTE | 2021-02-13 21:06 | NUR ---
pt got to a critical blood sugar of 65 & 60 @ 2000 - pt was given the protocol order of 25ml of 50% dextrose - 15 minutes after administration he returned to a stable blood sugar of 103. His Vitals are currently stable - will continue to monitor.
[2021-02-13] MEDS: Melatonin 3mg tablet PO SCH (21:19)
[2021-02-13 22:00] VITALS: BP 131/59
[2021-02-14 02:00] VITALS: BP 142/64
[2021-02-14] MEDS: albuterol 2.5 MG/3 ML nebule NEB SCH ×6 (02:36→23:04)
--- NOTE | 2021-02-14 06:13 | NUR ---
Problems reprioritized. Patient report given, questions answered & plan of care reviewed with ABIMAEL Warren.
[2021-02-14 07:00] VITALS: BP 164/67
--- NOTE | 2021-02-14 07:41 | NUR ---
Page to respiratory 3011 p[address]co. Pt requesting breathing tx please. Shaista [phone]
[2021-02-14 07:58] LABS: BASOPHILS % (AUTO) 0.2 % (0-1); EOSINOPHILS # (AUTO) 0.1 X10'3 (0-0.9); EOSINOPHILS % (AUTO) 1.2 % (0-6); HEMATOCRIT 24.8 % (42.0-52.0); HEMOGLOBIN 8.3 g/dl (14.0-17.9); LYMPHOCYTES # (AUTO) 0.4 X10'3 (1.1-4.8); MEAN CORPUSCULAR HEMOGLOBIN 30.8 PG (27.0-31.0); MEAN CORPUSCULAR HGB CONC 33.4 g/dL (33.0-36.5); MEAN CORPUSCULAR VOLUME 92.3 FL (78-98); MEAN PLATELET VOLUME 7.7 FL (7.4-10.4); MONOCYTES # (AUTO) 0.9 X10'3 (0-0.9); MONOCYTES % (AUTO) 11.3 % (2-12); NEUTROPHILS # (AUTO) 6.6 X10'3 (1.8-7.7); NEUTROPHILS % (AUTO) 82.3 % (42-75); PLATELET COUNT 215 X10'3 (140-440); RED BLOOD COUNT 2.68 X10'6 (4.70-6.10); RED CELL DISTRIBUTION WIDTH 16.2 % (11.5-14.5)
[2021-02-14] MEDS ORDERED: heparin 1,000 units/ml 10ml inj HE ONE ×2 (08:00)
[2021-02-14] MEDS ORDERED: EPOETIN ALFA-EPBX 20,000 UNIT/ML 1 ML MDV IV ONE (08:00)
[2021-02-14] MEDS ORDERED: heparin 1,000unit/ml 10ml vial 10 ML IV ONE (08:00)
[2021-02-14] MEDS ORDERED: normal saline 1000ml 250 ML IV PRN (08:00)
[2021-02-14 08:23] LABS: ALANINE AMINOTRANSFERASE 41 U/L (12-78); ALBUMIN 1.5 G/DL (3.4-5.0); ALBUMIN/GLOBULIN RATIO 0.3 (1.1-1.5); ALKALINE PHOSPHATASE 312 IU/L (46-116); ANION GAP 5 (8-16); ASPARTATE AMINO TRANSFERASE 40 U/L (10-37); BILIRUBIN,TOTAL 0.3 MG/DL (0.1-1.0); BLOOD UREA NITROGEN 72 MG/DL (7-18); BUN/CREATININE RATIO 16.5 (5.4-32.0); CALCIUM 8.5 MG/DL (8.5-10.1); CHLORIDE 100 MMOL/L (99-107); CREATININE 4.37 MG/DL (0.60-1.10); GLUCOSE 221 MG/DL (70-104); PHOSPHORUS 6.1 MG/DL (2.3-4.5); POTASSIUM 5.2 MMOL/L (3.5-5.1); SODIUM 137 MMOL/L (135-145); TOTAL CARBON DIOXIDE 32.5 MMOL/L (24-32); TOTAL PROTEIN 6.3 G/DL (6.4-8.2); eGFR 14 ML/MIN
--- NOTE | 2021-02-14 08:49 | NUR ---
called pharmacy about missing IV Synthroid . they will send up
[2021-02-14] MEDS: clotrimazole 10mg troche MM SCH ×5 (08:51→22:34)
[2021-02-14] MEDS: ciprofloxacin 250mg tablet PEG SCH ×2 (08:52→22:34)
[2021-02-14] MEDS: lactobacillus rhamnosus 10,000 MMU CELLS/CAPSULE NG SCH ×2 (08:52→20:18)
[2021-02-14] MEDS: docusate sodium 100mg/10ml UD cup CORPAK SCH ×2 (08:52→20:00)
[2021-02-14 10:27] LABS: TOTAL CELLS COUNTED 100
[2021-02-14 10:28] LABS: ANISOCYTOSIS 1+; HYPERSEGMENTED NEUTROPHILS 1+; PLATELET ESTIMATE NORMAL
[2021-02-14 10:29] LABS: LARGE PLATELETS FEW; POLYCHROMASIA 1+
[2021-02-14 11:00] VITALS: BP 111/57
[2021-02-14] MEDS: levoTHYROXINE sod inj. 100mcg/5 ml vial IV SCH (12:54)
[2021-02-14] MEDS: HYDROcodone/acetaminophen 10/325mg tab PO PRN (14:03)
[2021-02-14 15:00] VITALS: BP 114/75
[2021-02-14 18:00] VITALS: BP 105/50
--- NOTE | 2021-02-14 18:16 | NUR ---
Problems reprioritized. Patient report given, questions answered & plan of care reviewed with Monae VARGHESE. Patient resting in bed in no acute distress.
[2021-02-14] MEDS: guaiFENesin 200 MG/10 ML oral syrup UD cup GT SCH (20:18)
[2021-02-14] MEDS: Melatonin 3mg tablet PO SCH (20:18)
[2021-02-14] MEDS: insulin glargine (Lantus) pen - multi-dose SQ SCH (20:31)
[2021-02-14 22:00] VITALS: BP 119/46
[2021-02-15 02:00] VITALS: BP 151/57
[2021-02-15] MEDS: guaiFENesin 200 MG/10 ML oral syrup UD cup GT SCH ×2 (02:21→08:59)
[2021-02-15] MEDS: albuterol 2.5 MG/3 ML nebule NEB SCH ×3 (03:13→11:46)
[2021-02-15] MEDS: clotrimazole 10mg troche MM SCH ×2 (05:46→09:00)
--- NOTE | 2021-02-15 06:12 | NUR ---
Problems reprioritized. Patient report given, questions answered & plan of care reviewed with ABIMAEL Warren.
--- NOTE | 2021-02-15 06:23 | NUR ---
Patient in room PCU 3011. I have received report from Monae VARGHESE and had the opportunity to ask questions and assume patient care. Patient awake and alert sitting up in bed. Pt in no acute distress.
[2021-02-15 07:00] VITALS: BP 149/56
[2021-02-15] MEDS: levoTHYROXINE sod inj. 100mcg/5 ml vial IV SCH (08:00)
[2021-02-15] MEDS: docusate sodium 100mg/10ml UD cup CORPAK SCH (08:59)
[2021-02-15] MEDS: lactobacillus rhamnosus 10,000 MMU CELLS/CAPSULE NG SCH (08:59)
[2021-02-15] MEDS: ciprofloxacin 250mg tablet PEG SCH (09:00)
--- NOTE | 2021-02-15 09:34 | NUR ---
Patient ripped out IJ . He has no access. IV synthroid will be given late due to no IV access.
--- NOTE | 2021-02-15 09:35 | NUR ---
Insulin not given for tube feed per protocol this am due to tube feed rate being at 90ml/hr this morning. Patient is supposed to be at 60 mls/hr. BG was 223 patient had already had a low of 60 and needed to requalify for protocol. I will wait for 2pm BG reading and treat per protocol
--- NOTE | 2021-02-15 09:43 | NUR ---
complete oral care done.
[2021-02-15 09:53] LABS: BASOPHILS % (AUTO) 0.3 % (0-1); EOSINOPHILS # (AUTO) 0.1 X10'3 (0-0.9); EOSINOPHILS % (AUTO) 0.9 % (0-6); HEMATOCRIT 25.4 % (42.0-52.0); HEMOGLOBIN 8.3 g/dl (14.0-17.9); LYMPHOCYTES # (AUTO) 0.4 X10'3 (1.1-4.8); LYMPHOCYTES % (AUTO) 5.1 % (21-51); MEAN CORPUSCULAR HEMOGLOBIN 30.5 PG (27.0-31.0); MEAN CORPUSCULAR HGB CONC 32.6 g/dL (33.0-36.5); MEAN CORPUSCULAR VOLUME 93.5 FL (78-98); MEAN PLATELET VOLUME 7.7 FL (7.4-10.4); MONOCYTES # (AUTO) 0.7 X10'3 (0-0.9); NEUTROPHILS # (AUTO) 7.6 X10'3 (1.8-7.7); NEUTROPHILS % (AUTO) 85.7 % (42-75); PLATELET COUNT 224 X10'3 (140-440); RED BLOOD COUNT 2.72 X10'6 (4.70-6.10); RED CELL DISTRIBUTION WIDTH 16.4 % (11.5-14.5); WHITE BLOOD COUNT 8.9 X10'3 (4.5-11.0)
[2021-02-15 10:14] LABS: ALANINE AMINOTRANSFERASE 40 U/L (12-78); ALBUMIN 1.7 G/DL (3.4-5.0); ALBUMIN/GLOBULIN RATIO 0.3 (1.1-1.5); ALKALINE PHOSPHATASE 306 IU/L (46-116); ANION GAP 5 (8-16); ASPARTATE AMINO TRANSFERASE 30 U/L (10-37); BILIRUBIN,TOTAL 0.3 MG/DL (0.1-1.0); BLOOD UREA NITROGEN 48 MG/DL (7-18); BUN/CREATININE RATIO 14.7 (5.4-32.0); CALCIUM 8.4 MG/DL (8.5-10.1); CHLORIDE 101 MMOL/L (99-107); CREATININE 3.26 MG/DL (0.60-1.10); GLUCOSE 247 MG/DL (70-104); MAGNESIUM 2.6 MG/DL (1.5-2.4); PHOSPHORUS 4.8 MG/DL (2.3-4.5); POTASSIUM 4.6 MMOL/L (3.5-5.1); PREALBUMIN 12.4 MG/DL (19-36); SODIUM 137 MMOL/L (135-145); TOTAL CARBON DIOXIDE 31.3 MMOL/L (24-32); TOTAL PROTEIN 6.9 G/DL (6.4-8.2); TRIGLYCERIDES 41 MG/DL (20-135); eGFR 19 ML/MIN
[2021-02-15 11:00] VITALS: BP 147/52
[2021-02-15] MEDS: HYDROcodone/acetaminophen 10/325mg tab PO PRN (12:19)
[2021-02-15] MEDS ORDERED: CIPR250T4 PEG (13:11)
[2021-02-15] MEDS ORDERED: CLOT10TR6 MM (13:11)
[2021-02-15] MEDS ORDERED: MELA3TAB39 PO (13:11)
[2021-02-15] MEDS ORDERED: DOCU50LI CORPAK (13:11)
[2021-02-15] MEDS ORDERED: LACT1CAP26 NG (13:11)
--- NOTE | 2021-02-15 13:48 | NUR ---
Report called to Riddhi MEEK at [facility]. at [phone]
--- NOTE | 2021-02-15 15:16 | NUR ---
Patient left with [facility]. Patient Alert, oriented, and appropriate at time of DC. HOme CPap, phone, dairy farm worker, glasses and duffel bag of belongings were sent with the patient.
== END 2021-02-15 14:35 | DRG 163 ==
LOC: PAS IN 08:05 → UNDOADMIN 08:05 → PAS IN 19:07 → PCU 3S 20:30 → ICU 2S 01-26 20:27 → PCU 3S 01-30 18:40 → ICU 2S 01-31 17:30 → PCU 3S 02-11 15:38
PROVIDERS: ADMIT Surgery; ATTEND Surgery
PROC: 07B74ZZ Excision of Thorax Lymphatic, Percutaneous Endoscopic Approach (ICD-10-PCS; 2021-01-25)
PROC: 0W9940Z Drainage of Right Pleural Cavity with Drainage Device, Percutaneous Endoscopic Approach (ICD-10-PCS; 2021-01-25)
PROC: 8E0W4CZ Robotic Assisted Procedure of Trunk Region, Percutaneous Endoscopic Approach (ICD-10-PCS; 2021-01-25)
PROC: 0BBC4ZZ Excision of Right Upper Lung Lobe, Percutaneous Endoscopic Approach (ICD-10-PCS; principal; 2021-01-25 15:02)
PROC: 5A09457 Assistance with Respiratory Ventilation, 24-96 Consecutive Hours, Continuous Positive Airway Pressure (ICD-10-PCS; 2021-01-26)
PROC: 5A09357 Assistance with Respiratory Ventilation, Less than 24 Consecutive Hours, Continuous Positive Airway Pressure (ICD-10-PCS; 2021-01-29)
PROC: 5A09357 Assistance with Respiratory Ventilation, Less than 24 Consecutive Hours, Continuous Positive Airway Pressure (ICD-10-PCS; 2021-01-31)
PROC: 5A0935A Assistance with Respiratory Ventilation, Less than 24 Consecutive Hours, High Flow/Velocity Cannula (ICD-10-PCS; 2021-01-31)
PROC: 5A09357 Assistance with Respiratory Ventilation, Less than 24 Consecutive Hours, Continuous Positive Airway Pressure (ICD-10-PCS; 2021-02-01)
PROC: 02HV33Z Insertion of Infusion Device into Superior Vena Cava, Percutaneous Approach (ICD-10-PCS; 2021-02-01)
PROC: B548ZZA Ultrasonography of Superior Vena Cava, Guidance (ICD-10-PCS; 2021-02-01)
PROC: 5A1D70Z Performance of Urinary Filtration, Intermittent, Less than 6 Hours Per Day (ICD-10-PCS; 2021-02-01)
PROC: 05HY33Z Insertion of Infusion Device into Upper Vein, Percutaneous Approach (ICD-10-PCS; 2021-02-02)
PROC: B54NZZA Ultrasonography of Left Upper Extremity Veins, Guidance (ICD-10-PCS; 2021-02-02)
PROC: 5A1D70Z Performance of Urinary Filtration, Intermittent, Less than 6 Hours Per Day (ICD-10-PCS; 2021-02-02)
PROC: 5A09357 Assistance with Respiratory Ventilation, Less than 24 Consecutive Hours, Continuous Positive Airway Pressure (ICD-10-PCS; 2021-02-05)
PROC: 5A1D70Z Performance of Urinary Filtration, Intermittent, Less than 6 Hours Per Day (ICD-10-PCS; 2021-02-05)
PROC: 5A09357 Assistance with Respiratory Ventilation, Less than 24 Consecutive Hours, Continuous Positive Airway Pressure (ICD-10-PCS; 2021-02-06)
PROC: 0JH63XZ Insertion of Tunneled Vascular Access Device into Chest Subcutaneous Tissue and Fascia, Percutaneous Approach (ICD-10-PCS; 2021-02-06)
PROC: 02HV33Z Insertion of Infusion Device into Superior Vena Cava, Percutaneous Approach (ICD-10-PCS; 2021-02-06)
PROC: B548ZZA Ultrasonography of Superior Vena Cava, Guidance (ICD-10-PCS; 2021-02-06)
PROC: B5181ZA Fluoroscopy of Superior Vena Cava using Low Osmolar Contrast, Guidance (ICD-10-PCS; 2021-02-06)
PROC: 5A1D70Z Performance of Urinary Filtration, Intermittent, Less than 6 Hours Per Day (ICD-10-PCS; 2021-02-06)
PROC: 5A09457 Assistance with Respiratory Ventilation, 24-96 Consecutive Hours, Continuous Positive Airway Pressure (ICD-10-PCS; 2021-02-08)
PROC: 5A1D70Z Performance of Urinary Filtration, Intermittent, Less than 6 Hours Per Day (ICD-10-PCS; 2021-02-08)
PROC: 5A0935A Assistance with Respiratory Ventilation, Less than 24 Consecutive Hours, High Flow/Velocity Cannula (ICD-10-PCS; 2021-02-10)
PROC: 5A1D70Z Performance of Urinary Filtration, Intermittent, Less than 6 Hours Per Day (ICD-10-PCS; 2021-02-10)
PROC: 0DH68UZ Insertion of Feeding Device into Stomach, Via Natural or Artificial Opening Endoscopic (ICD-10-PCS; 2021-02-10)
PROC: 5A09357 Assistance with Respiratory Ventilation, Less than 24 Consecutive Hours, Continuous Positive Airway Pressure (ICD-10-PCS; 2021-02-11)
PROC: 5A0935A Assistance with Respiratory Ventilation, Less than 24 Consecutive Hours, High Flow/Velocity Cannula (ICD-10-PCS; 2021-02-11)
PROC: 30233N1 Transfusion of Nonautologous Red Blood Cells into Peripheral Vein, Percutaneous Approach (ICD-10-PCS; 2021-02-12)
PROC: 5A09357 Assistance with Respiratory Ventilation, Less than 24 Consecutive Hours, Continuous Positive Airway Pressure (ICD-10-PCS; 2021-02-12)
PROC: 5A1D70Z Performance of Urinary Filtration, Intermittent, Less than 6 Hours Per Day (ICD-10-PCS; 2021-02-12)
PROC: 5A09357 Assistance with Respiratory Ventilation, Less than 24 Consecutive Hours, Continuous Positive Airway Pressure (ICD-10-PCS; 2021-02-13)
PROC: 5A09357 Assistance with Respiratory Ventilation, Less than 24 Consecutive Hours, Continuous Positive Airway Pressure (ICD-10-PCS; 2021-02-14)
PROC: 5A0935A Assistance with Respiratory Ventilation, Less than 24 Consecutive Hours, High Flow/Velocity Cannula (ICD-10-PCS; 2021-02-14)
PROC: 5A1D70Z Performance of Urinary Filtration, Intermittent, Less than 6 Hours Per Day (ICD-10-PCS; 2021-02-14)
PROC: 5A09357 Assistance with Respiratory Ventilation, Less than 24 Consecutive Hours, Continuous Positive Airway Pressure (ICD-10-PCS; 2021-02-15)
PROC: 5A0935A Assistance with Respiratory Ventilation, Less than 24 Consecutive Hours, High Flow/Velocity Cannula (ICD-10-PCS; 2021-02-15)
DX: C34.11 Malignant neoplasm of upper lobe, right bronchus or lung (principal); E43 Unspecified severe protein-calorie malnutrition; J69.0 Pneumonitis due to inhalation of food and vomit; J96.21 Acute and chronic respiratory failure with hypoxia; J96.22 Acute and chronic respiratory failure with hypercapnia; N17.0 Acute kidney failure with tubular necrosis; E87.2 Acidosis; N18.4 Chronic kidney disease, stage 4 (severe); R47.01 Aphasia; J93.9 Pneumothorax, unspecified; Z20.822 Contact with and (suspected) exposure to COVID-19; G40.909 Epilepsy, unspecified, not intractable, without status epilepticus; G47.30 Sleep apnea, unspecified; I25.10 Atherosclerotic heart disease of native coronary artery without angina pectoris; I48.91 Unspecified atrial fibrillation; I95.9 Hypotension, unspecified; R47.1 Dysarthria and anarthria; I49.3 Ventricular premature depolarization; R29.708 NIHSS score 8; K22.89 Other specified disease of esophagus; R13.10 Dysphagia, unspecified; I12.9 Hypertensive chronic kidney disease with stage 1 through stage 4 chronic kidney disease, or unspecified chronic kidney disease; C32.9 Malignant neoplasm of larynx, unspecified; D64.9 Anemia, unspecified; E03.9 Hypothyroidism, unspecified; E78.5 Hyperlipidemia, unspecified; E87.5 Hyperkalemia; Z68.34 Body mass index [BMI] 34.0-34.9, adult; Z79.01 Long term (current) use of anticoagulants; Z79.899 Other long term (current) drug therapy; Z85.819 Personal history of malignant neoplasm of unspecified site of lip, oral cavity, and pharynx; Z95.5 Presence of coronary angioplasty implant and graft; Z88.5 Allergy status to narcotic agent; Z79.82 Long term (current) use of aspirin
CPT/HCPCS: 36415; 36430; 36556; 36558; 36573; 36600; 43246; 70450; 70544; 70551; 71045; 71046; 71250; 74018; 76770; 76937; 77001; 80053; 80202; 81001; 82570; 82803; 82948; 83036; 83605; 83735; 84100; 84132; 84134; 84156; 84300; 84443; 84478; 84484; 84560; 85007; 85018; 85025; 85610; 85730; 86885; 86900; 86901; 86920; 87040; 87070; 87081; 87207; 87340; 87635; 88305; 88307; 88331; 88341; 88342; 92508; 92616; 93005; 93308; 93880; 93922; 93970; 94640; 94660; 94667; 94668; 94760; 97110; 97116; 97161; 97530; 97535; 99152; A4618; A6258; A6449; A7000; A7015; A7048; A9270; B4087; C1750; C1751; C1758; C1769; C1894; C9113; C9250; C9290; C9399; G0257; G0378; J0690; J1100; J1644; J1815; J1940; J2150; J2212; J2250; J2270; J2370; J2405; J2543; J2704; J2997; J3010; J3370; J3475; J3490; J7040; J7042; J7050; J7060; J7120; P9016; P9045; P9047; Q4081; Q9963; U0003; U0005